=== PATIENT | female | born 1965 | race Two or more races ===

== ENCOUNTER → 2024-02-28 | Outpatient (CLI) | payer MEDICARE, MEDICAID, SELFPAY ==
--- NOTE | 2024-02-28 09:17 | XR_ITS ---
Examination: Bilateral hands, 6 views. Technique: AP, Oblique, Lateral each hand total 6 views Date and time of exam: February 28, 2024 0931 hours INDICATIONS: Bilateral hand pain several years. FINDINGS: Significant osteopenia Benign-appearing sclerosis involving the distal phalanx right fifth digit but clinical correlation advised Mild diffuse narrowing joints of the wrists and hands bilaterally No erosive arthritis No fracture or dislocation involving either hand Impression: Significant osteopenia Mild diffuse nonerosive narrowing joints of the wrists and hands bilaterally Focal sclerosis involving the distal phalanx right fifth digit, likely benign but clinical correlation advised, recommend 3 month follow-up right hand films attention fifth digit
--- NOTE | 2024-02-28 09:17 | XR_ITS ---
Examination: Bilateral wrists 6 views TECHNIQUE: AP oblique lateral each wrist total 6 views Exam date and time: February 28, 2024 0936 hours INDICATIONS: Bilateral wrist pain beginning several years ago FINDINGS: Severe osteopenia Diffuse mild to moderate narrowing radiocarpal intercarpal and carpometacarpal joints No erosive arthritis. No fractures. There is soft tissue vascular calcification. No avascular necrosis IMPRESSION: Severe osteopenia Diffuse [id number] nonerosive narrowing involving radiocarpal, intercarpal and carpometacarpal joints
== END | disposition home or self-care (01) ==
PROVIDERS: PCP Family Medicine; Referring Provider Nurse Practitioner Gerontology; Visit Provider Nurse Practitioner Gerontology
DX: M85.842 Other specified disorders of bone density and structure, left hand (principal); M85.841 Other specified disorders of bone density and structure, right hand; M25.842 Other specified joint disorders, left hand; M25.841 Other specified joint disorders, right hand; M85.88 Other specified disorders of bone density and structure, other site; M25.832 Other specified joint disorders, left wrist; M25.831 Other specified joint disorders, right wrist
CPT/HCPCS: 73110; 73130

== ENCOUNTER → 2024-03-25 | Outpatient (CLI) | payer MEDICARE, SELFPAY ==
[2024-03-25 10:10] LABS: Basophils % (Auto) 0 % (0-2.5); Eosinophils # (Auto) 0.1 Thou/mm3 (0.0-0.5); Eosinophils % (Auto) 1 % (0-10); Hematocrit 39.9 % (36.0-46.0); Hemoglobin 13.7 g/dL (12.0-16.0); Immature Granulocytes % (Auto) 0 % (0-0); Immature Granulocytes Auto 0.01 Thou/mm3 (0.00-0.00); Lymphocytes # (Auto) 2.5 Thou/mm3 (1.0-4.8); Lymphocytes % (Auto) 41 % (10-50); Mean Corpuscular HGB Conc 34.3 g/dl (31.0-37.0); Mean Corpuscular Hemoglobin 29.5 pg (25.0-35.0); Mean Corpuscular Volume 86 fL (80-100); Monocytes # (Auto) 0.3 Thou/mm3 (0.0-0.8); Monocytes % (Auto) 5 % (0-12); Neutrophils # (Auto) 3.2 Thou/mm3 (1.8-7.7); Neutrophils % (Auto) 52 % (37-80); Nucleated Red Blood Cell % 0 /100 WBC (0); Platelet Count 201 Thou/mm3 (140-440); RDW Standard Deviation 41.5 fL (36.4-46.3); Red Blood Count 4.64 Miln/mm3 (4.00-5.20); White Blood Count 6.2 Thou/mm3 (3.6-11.0)
[2024-03-25 10:20] LABS: Glucose Estimated Average 157 mg/dL (80-131); Hemoglobin A1C 7.1 % Hgb (4.8-6.0)
[2024-03-25 10:24] LABS: T4 (Thyroxine) 6.7 mcg/dL (4.5-10.9)
[2024-03-25 10:28] LABS: Alanine Aminotransferase 41 U/L (10-49); Albumin, Serum 4.4 gm/dL (3.4-4.8); Albumin/Globulin Ratio 1.9 (1.2-2.2); Alkaline Phosphatase 61 U/L (46-116); Anion Gap 8 (7-16); Aspartate Amino Transferase 28 U/L (0-34); BUN/Creatinine Ratio 20 Ratio (12-20); Bilirubin,Total 0.4 mg/dL (0.3-1.2); Blood Urea Nitrogen 12 mg/dL (9-23); Calcium 9.3 mg/dL (8.3-10.6); Calcium (Corrected) 9.3 mg/dL (8.5-10.1); Carbon Dioxide 26.8 mMol/L (20.0-31.0); Cardiac Risk Estimate 2.8 RATIO (3.7-5.6); Chloride 105 mMol/L (98-107); Cholesterol 127 mg/dL (132-200); Creatinine (Component) 0.6 mg/dL (0.6-1.3); Globulin 2.3 gm/dL (2.3-3.5); Glucose 114 mg/dL (74-106); HDL Cholesterol 46 mg/dL (40-60); LDL Cholesterol,Calculated 54 mg/dL (0-130); Magnesium 1.6 mg/dL (1.6-2.6); Osmolality,Calculated 280 (275-295); Sodium 140 mMol/L (136-145); Thyroid Stimulating Hormone 0.49 uIU/mL (0.55-4.78); Total Protein 6.7 gm/dL (5.7-8.2); Triglycerides 136 mg/dL (30-150); eGFR > 60 See Note
[2024-03-25 10:40] LABS: Vitamin D 25 Hydroxy Total 37.2 ng/mL (7.3-40.2)
[2024-03-31 06:39] LABS: T3 Uptake* 34 % (22-35)
== END | disposition home or self-care (01) ==
PROVIDERS: PCP Nurse Practitioner Family; Referring Provider Nurse Practitioner Family; Visit Provider Nurse Practitioner Family
DX: E11.40 Type 2 diabetes mellitus with diabetic neuropathy, unspecified (principal); E55.9 Vitamin D deficiency, unspecified; I10 Essential (primary) hypertension; E78.5 Hyperlipidemia, unspecified
CPT/HCPCS: 36415; 80053; 80061; 82306; 83036; 83735; 84436; 84443; 84479; 85025

== ENCOUNTER → 2024-05-27 | Outpatient (CLI) | payer MEDICARE, MEDICAID, SELFPAY ==
--- NOTE | 2024-05-27 | XR_ITS ---
Shoulder bilateral, 6 views Technique: Shoulder AP internal rotation, AP external rotation, Y view each shoulder 6 views Exam date and time :May 27, 2024 1226 hrs. Indications: Bilateral shoulder pain several years. Findings: Moderate osteopenia Bilateral moderate to advanced osteoarthritis glenohumeral joints Old resection distal right clavicle No fractures Impression: Bilateral moderate to advanced osteoarthritis glenohumeral joints
== END | disposition home or self-care (01) ==
PROVIDERS: PCP Nurse Practitioner Family; Referring Provider Nurse Practitioner Family; Visit Provider Nurse Practitioner Family
DX: M19.012 Primary osteoarthritis, left shoulder (principal); M19.011 Primary osteoarthritis, right shoulder
CPT/HCPCS: 73030

== ENCOUNTER 2024-06-25 14:05 | Inpatient (IN) | payer MEDICARE, MEDICAID, SELFPAY ==
[2024-06-25] VITALS (7 sets, daily range): BP systolic 123–137; BP diastolic 65–81; PULSE 72–102; RESP 16–99; TEMP 36.4–37; O2SAT 96–99
--- NOTE | 2024-06-25 14:24 | XR_ITS ---
Examination: PA lateral chest 2 views TECHNIQUE: Upright PA lateral chest 2 views Exam date and time: June 25, 2024 1654 hours Comparison July 14, 2020 INDICATIONS: Chest pain today FINDINGS: Normal heart size Lungs are clear. Old right-sided rib fractures IMPRESSION: No active disease
--- NOTE | 2024-06-25 14:25 | PD.EDRME ---
Rapid Medical Screening Exam E Arrival date/time: 06/25/24 14:05 59-year-old female presents to the emergency department for complaint of abdominal pain blood in the stool generalized fatigue Chief Complaint: Abdominal Pain Vital signs: Vital Signs Temperature 98.5 F 06/25/24 14:15 Pulse Rate 102 H 06/25/24 14:15 Respiratory Rate 20 06/25/24 14:15 Blood Pressure 129/75 06/25/24 14:15 Pulse Oximetry (%) 98 06/25/24 14:15 Oxygen Delivery Method Room Air 06/25/24 14:15
[2024-06-25 15:14] LABS: Collection Type, Urine Clean Catch
[2024-06-25 15:18] LABS: Basophils % (Auto) 0 % (0-2.5); Eosinophils # (Auto) 0.1 Thou/mm3 (0.0-0.5); Eosinophils % (Auto) 1 % (0-10); Hematocrit 40.6 % (36.0-46.0); Hemoglobin 14.7 g/dL (12.0-16.0); Immature Granulocytes % (Auto) 0 % (0-0); Immature Granulocytes Auto 0.02 Thou/mm3 (0.00-0.00); Lymphocytes % (Auto) 23 % (10-50); Mean Corpuscular HGB Conc 36.2 g/dl (31.0-37.0); Mean Corpuscular Hemoglobin 30.6 pg (25.0-35.0); Mean Corpuscular Volume 84 fL (80-100); Monocytes # (Auto) 0.5 Thou/mm3 (0.0-0.8); Monocytes % (Auto) 6 % (0-12); Neutrophils # (Auto) 6.4 Thou/mm3 (1.8-7.7); Neutrophils % (Auto) 71 % (37-80); Nucleated Red Blood Cell % 0 /100 WBC (0); Platelet Count 194 Thou/mm3 (140-440); Red Blood Count 4.81 Miln/mm3 (4.00-5.20)
[2024-06-25 15:26] LABS: Amphetamine/Methamp Scrn,U Negative (Negative); Barbiturate Screen,Urine Negative (Negative); Benzodiazepines Screen,Urine Negative (Negative); Benzoylecgonine Screen, Ur Negative (Negative); Fentanyl Screen,Urine Negative (Negative); Opiate Screen,Urine Negative (Negative); THC Screen,Urine Negative (Negative)
[2024-06-25 15:28] LABS: Bilirubin,Urine Negative (Negative); Blood,Urine Negative (Negative); Clarity,Urine Clear (Clear/Hazy); Color,Urine Lt-Yellow (Lt Yel-Yel); Glucose, Urine 4+ (Negative); Ketones,Urine Negative (Negative); Leukocyte Esterase,Urine Negative (Negative); Nitrite,Urine Negative (Negative); Protein,Urine Negative (Neg - Trace); RBC,Urine 4 /hpf (0-3); Specific Gravity,Urine 1.038 (1.001-1.035); Squamous Epithelial Cell,Urine 3 /hpf (0-5); Urobilinogen,Urine Negative mg/dL (0.0-1.0); WBC,Urine 1 /hpf (0-5)
[2024-06-25 15:32] LABS: INR 1.1 (0.9-1.3); Partial Thromboplastin Time 25.1 Seconds (22.0-36.0); Prothrombin Time 11.5 Seconds (9.0-12.2)
[2024-06-25 15:33] LABS: B-Type Natriuretic Peptide 25 pg/mL (0-100)
[2024-06-25 15:34] LABS: Alanine Aminotransferase 37 U/L (10-49); Albumin/Globulin Ratio 1.9 (1.2-2.2); Alkaline Phosphatase 79 U/L (46-116); Anion Gap 9 (7-16); Aspartate Amino Transferase 35 U/L (0-34); BUN/Creatinine Ratio 13 Ratio (12-20); Bilirubin,Total 0.5 mg/dL (0.3-1.2); Blood Urea Nitrogen 13 mg/dL (9-23); Calcium 9.7 mg/dL (8.3-10.6); Calcium (Corrected) 9.7 mg/dL (8.5-10.1); Carbon Dioxide 24.1 mMol/L (20.0-31.0); Chloride 106 mMol/L (98-107); Estimated Creatinine Clearance 62.4 mL/min (>60); Globulin 2.7 gm/dL (2.3-3.5); Glucose 194 mg/dL (74-106); Lipase 51 U/L (12-53); Osmolality,Calculated 282 (275-295); Potassium 4.7 mMol/L (3.4-5.1); Sodium 139 mMol/L (136-145); Total Protein 7.7 gm/dL (5.7-8.2); Troponin I < 0.002 ng/mL (0.0-0.045); eGFR > 60 See Note
--- NOTE | 2024-06-25 17:21 | XR_ITS ---
Examination: CT abdomen with intravenous contrast CT pelvis with intravenous contrast 2-D coronal reconstructions 2-D sagittal reconstructions Date and time of exam:June 25, 2024 1815 hours Comparison May 22, 2021 INDICATIONS: Bloody diarrhea flank pain today, history diverticulitis. CTDI: vol (mGy) 11 DLP: (mGycm) 630 Technique: Multiple axial sections of the abdomen and pelvis have been obtained. 64 slice high-resolution scanner used. 3 mm axial sections have been obtained, post intravenous injection 60 cc [id number] 2-D sagittal, coronal reconstructions obtained. Low dose protocols were performed. One or more of the following dose reduction techniques were used; automated exposure control, adjustment of the mA and/or KV according to patient size, use of iterative reconstruction technique. Findings: Gastric sutures with retrocardiac gastric hernia Fatty infiltration throughout the liver liver is irregular in contour Absent gallbladder Mild splenomegaly No pancreatic or adrenal mass 4 mm lower pole nonobstructing left renal calculus Abdominal aortic calcification no aneurysmal dilatation 15 mm fat-containing umbilical hernia No pericecal inflammatory change The entire colon shows wall thickening and hyperemia, nonspecific colitis pattern This includes the rectum with rectal wall thickening No pelvic mass Moderate osteopenia moderate disc narrowing L4-L5 Impression: Suspect primary hepatocellular disease Mild splenomegaly. 4 mm lower pole obstructing left renal calculus The entire colon shows wall thickening and hyperemia, colitis pattern, differential include hepatic arthropathy, ulcerative colitis, Crohn's disease Also proctitis pattern
--- NOTE | 2024-06-25 17:29 | PD.EDABDPN ---
ED Abdominal Pain RME/HPI General Chief Complaint: Abdominal Pain Stated complaint: ABD PAIN, BLOODY DIARRHEA;PT HAS DIVERTICULA.VOMIT Time seen by provider: 06/25/24 16:48 Arrival date/time: 06/25/24 14:05 59-year-old female presents to the ED with a complaint of left lower abdominal cramping, pain as well as bloody diarrhea for the past 3 days. She has a history of diverticulosis as well as a previous history of diverticulitis. She feels that her symptoms she is currently experiencing are just like the previous history of diverticulitis. She has felt feverish and chilled but no documented temperature at home. She sees Dr. Johnson for gastroenterology. She has had some nausea but no vomiting. Source: patient Mode of arrival: ambulatory Limitations: no limitations RME / HPI RME / HPI narrative: 06/25/24 14:05 59-year-old female presents to the emergency department for complaint of abdominal pain blood in the stool generalized fatigue MD complaint: abdominal pain Onset (ago): day(s) (3) Consistency: constant Location: LLQ and suprapubic Severity: severe Quality: cramping Associated symptoms: nausea, diarrhea, fever, chills and melena Related Data Home Medications ?Medication ?Instructions ?Recorded ?Confirmed pantoprazole 40 mg tablet,delayed 40 mg PO QDAY 11/24/17 04/27/23 release (Protonix) acetaminophen 500 mg oral powder 500 mg PO Q6H PRN Pain (Scale 04/27/23 04/27/23 packet Score 4-6) atorvastatin 20 mg tablet 20 mg PO QDAY 04/27/23 04/27/23 cyclobenzaprine 5 mg tablet 5 mg PO TID PRN muscle spams 04/27/23 04/27/23 Held on 04/27/23. Instructions: Resume on 04/28/23. dicyclomine 20 mg tablet 20 mg PO QID PRN Abdominal Pain 04/27/23 04/27/23 duloxetine 20 mg capsule,delayed 20 mg PO QDAY 04/27/23 04/27/23 release Previous Rx's ?Medication ?Instructions ?Recorded diphenhydramine HCl 25 mg capsule 25 mg PO Q8H PRN allergic symptoms 04/06/23 (Benadryl) #30 caps Held on 04/27/23. Instructions: Resume on 04/28/23. Allergies Allergy/AdvReac Type Severity Reaction Status Date / Time Sulfa (Sulfonamide Allergy Swelling Verified 06/25/24 14:10 Antibiotics) of Lip/Tongue/Throat codeine AdvReac Severe SICK TO Verified 06/25/24 14:10 STOMACH Review of Systems Review of Systems Systems Reviewed: All systems reviewed, normal except as documented Past Medical History Past Medical History NEUROLOGIC: Negative Neurological Disorders or Seizures CARDIAC: Positive Cardiac Disorders, Hypercholesterolemia and Hypertension; Negative Congestive Heart Failure, Edema or Cellulitis RESPIRATORY: Negative Chronic Obstructive Pulmonary Disease (COPD), Asthma, Tuberculosis or Sleep Apnea GASTROINTESTINAL: Positive Gastrointestinal Disorders, Pancreatitis, Gall Bladder Disease, Diverticulitis, Diverticulosis, Gastroesophageal Reflux Disease and Obesity; Negative Hepatitis GENITOURINARY: Negative Genitourinary Disorders or Renal Disease REPRODUCTIVE: Positive Gonorrhea and Previous Pregnancies; Negative Breast Cancer or Endometriosis MUSCULOSKELETAL: Positive Musculoskeletal Disorders, Arthritis and Fractures ENDOCRINE: Positive Endocrine Disorders and Diabetes Mellitus Type 2; Negative Diabetes Mellitus Type 1 or Hypothyroidism HEMATOLOGIC: Positive Anemia; Negative Blood Disorders, Sickle Cell Disease or Clotting Problems PSYCHO/SOCIAL: Positive Depression and Anxiety OTHER HISTORY: Positive Hospitalization, Falls and Chicken Pox; Negative Autoimmune Disease, Shingles, Blood Transfusions, Blood Transfusion Reaction, Anesthesia Reactions, Chemotherapy, Radiation Therapy, MRSA, Measles, Mumps, Cancer or Breast Cancer Family History FAMILY HISTORY: Positive Family Psychiatric Problems, Family Cardiac Disorders, Family Gastrointestinal Problems, Family Cancer, Family Surgery and Family Anesthesia Reaction; Negative Family Respiratory Disorders Surgical History SURGICAL: Positive Angiogram, Abdominal Surgery, Open Reduction Internal Fixation, Arthroscopy, Hysterectomy, Tubal Ligation and Section; Negative Cardiac Surgery or Pacemaker Social History SMOKING STATUS: Never smoker SECOND HAND EXPOSURE: Yes SUBSTANCE USE: former substance user (Quit in 2020) ED Exam Narrative Physical exam: Pleasant 59-year-old female, mild acute distress secondary to pain. Lungs are clear, cardio: Regular rate and rhythm without murmurs. Abdomen is soft with tenderness in the left lower quadrant as well as suprapubic areas. Moves all extremities well. Alert and oriented. General Limitations: Present no limitations General appearance: Present alert and in distress Head Head exam: Present atraumatic, normocephalic and normal inspection Eye Eye exam: Present normal appearance; Absent scleral icterus or conjunctival injection ENT ENT exam: Present normal exam Neck Neck exam: Present normal inspection Chest Chest inspection: Present normal inspection Respiratory Respiratory exam: Present normal lung sounds bilaterally; Absent respiratory distress Cardiovascular Cardiovascular exam: Present regular rate, normal rhythm, normal heart sounds, +S1 and +S2; Absent systolic murmur Abdominal Exam Abdominal exam: Present soft and tenderness; Absent distention, guarding, rebound or rigidity Abdominal tenderness: Present LLQ and suprapubic Extremities Exam Extremities exam: Present normal inspection and full ROM Back Exam Back exam: Present normal inspection and full ROM; Absent CVA tenderness (R) or CVA tenderness (L) Neurological Exam Neurological exam: Present alert and oriented X3 Psychiatric Psychiatric exam: Present normal affect and normal mood Skin Skin exam: Present warm, dry, intact and normal color Course Course Course Narrative: 59-year-old female presents to the ED with a complaint of left lower abdominal cramping, pain as well as bloody diarrhea for the past 3 days. She has a history of diverticulosis as well as a previous history of diverticulitis. She feels that her symptoms she is currently experiencing are just like the previous history of diverticulitis. She has felt feverish and chilled but no documented temperature at home. She sees Dr. Johnson for gastroenterology. She has had some nausea but no vomiting. Pleasant 59-year-old female, mild acute distress secondary to pain. Lungs are clear, cardio: Regular rate and rhythm without murmurs. Abdomen is soft with tenderness in the left lower quadrant as well as suprapubic areas. Moves all extremities well. Alert and oriented. Labs are essentially normal with a normal white count, normal renal function, elevated glucose at 194, BUN/creatinine ratio 13, AST is minimally elevated 35, urinalysis reveals a specific gravity of 1.038 and 4+ glucose with 4 RBCs, otherwise negative. Quality Measures none Orders Category Date Time Status CT Screening NOW Care 06/25/24 17:[address] Screening X1 Care 06/25/24 17:21 Active EKG (ED ONLY) *Do not use* NOW Care 06/25/24 14:24 Completed Insert IV NOW Care 06/25/24 17:[address] abdomen pelvis w con Stat Exams 06/25/24 17:21 Completed EKG (ED Only) Stat Exams 06/25/24 14:24 Ordered XR chest 2V Stat Exams 06/25/24 14:24 Completed B-Type Natriuretic Peptide Stat Lab 06/25/24 15:04 Completed CBC Stat Lab 06/25/24 15:04 Completed Comprehensive Metabolic Panel Stat Lab 06/25/24 15:04 Completed Drug Screen,Urine Stat Lab 06/25/24 14:50 Completed Lipase Stat Lab 06/25/24 15:04 Completed Magnesium Stat Lab 06/25/24 15:04 Completed Partial Thromboplastin Time Stat Lab 06/25/24 15:04 Completed Prothrombin Time with INR Stat Lab 06/25/24 15:04 Completed Troponin I Stat Lab 06/25/24 15:04 Completed Urinalysis Stat Lab 06/25/24 14:50 Completed Ketorolac Inj [Toradol Inj] Med 06/25/24 18:39 Discontinued 30 mg IM X1 ONE Vital Signs Vital signs: Vital Signs Temperature 98.5 F 06/25/24 14:15 Pulse Rate 102 H 06/25/24 14:15 Respiratory Rate 20 06/25/24 14:15 Blood Pressure 129/75 06/25/24 14:15 Pulse Oximetry (%) 98 06/25/24 14:15 Oxygen Delivery Method Room Air 06/25/24 14:15 Abdominal Pain MDM MDM Narrative MDM Narrative:: 59-year-old female presents to the ED with a complaint of left lower abdominal cramping, pain as well as bloody diarrhea for the past 3 days. She has a history of diverticulosis as well as a previous history of diverticulitis. She feels that her symptoms she is currently experiencing are just like the previous history of diverticulitis. She has felt feverish and chilled but no documented temperature at home. She sees Dr. Johnson for gastroenterology. She has had some nausea but no vomiting. Pleasant 59-year-old female, mild acute distress secondary to pain. Lungs are clear, cardio: Regular rate and rhythm without murmurs. Abdomen is soft with tenderness in the left lower quadrant as well as suprapubic areas. Moves all extremities well. Alert and oriented. Labs are essentially normal with a normal white count, normal renal function, elevated glucose at 194, BUN/creatinine ratio 13, AST is minimally elevated 35, urinalysis reveals a specific gravity of 1.038 and 4+ glucose with 4 RBCs, otherwise negative. CT Abd/Pel reveals: Impression: Suspect primary hepatocellular disease Mild splenomegaly. 4 mm lower pole non-obstructing left renal calculus The entire colon shows wall thickening and hyperemia, colitis pattern, differential include hepatic arthropathy, ulcerative colitis, Crohn's disease Also proctitis pattern Due to the CT confirmed colitis with bloody diarrhea, patient has a lower GI bleed and needs to be admitted to the hospital. Patient data External records reviewed:: None Clinical information provided by:: patient Social determinants that could affect healthcare access:: none How is presenting disease/condition affected by chronic disease/condition?: uneffected by Evaluation data The following diagnostics were reviewed and interpreted by me:: radiology exam(s) Lab and/or radiology exams considered but not ordered:: N/A Interpretation Summary: Ordering Physician: Martina Valdovinos PA-C Date of Service: 06/25/24 Procedure(s): CT abdomen pelvis w con Accession Number(s): [id number] cc: Marcial Walters MD; NO PRIMARY/FAMILY,PHYSICIAN; Martina Valdovinos PA-C~ ADDENDUM ADDENDUM #1 Addendum: Body of the report and impression indicate 2 mm lower pole nonobstructing left renal calculus ORIGINAL REPORT Examination: CT abdomen with intravenous contrast CT pelvis with intravenous contrast 2-D coronal reconstructions 2-D sagittal reconstructions Date and time of exam:June 25, 2024 1815 hours Comparison May 22, 2021 INDICATIONS: Bloody diarrhea flank pain today, history diverticulitis. CTDI: vol (mGy) 11 DLP: (mGycm) 630 Technique: Multiple axial sections of the abdomen and pelvis have been obtained. 64 slice high-resolution scanner used. 3 mm axial sections have been obtained, post intravenous injection 60 cc Isovue-370 2-D sagittal, coronal reconstructions obtained. Low dose protocols were performed. One or more of the following dose reduction techniques were used; automated exposure control, adjustment of the mA and/or KV according to patient size, use of iterative reconstruction technique. Findings: Gastric sutures with retrocardiac gastric hernia Fatty infiltration throughout the liver liver is irregular in contour Absent gallbladder Mild splenomegaly No pancreatic or adrenal mass 4 mm lower pole nonobstructing left renal calculus Abdominal aortic calcification no aneurysmal dilatation 15 mm fat-containing umbilical hernia No pericecal inflammatory change The entire colon shows wall thickening and hyperemia, nonspecific colitis pattern This includes the rectum with rectal wall thickening No pelvic mass Moderate osteopenia moderate disc narrowing L4-L5 Impression: Suspect primary hepatocellular disease Mild splenomegaly. 4 mm lower pole NON-obstructing left renal calculus The entire colon shows wall thickening and hyperemia, colitis pattern, differential include hepatic arthropathy, ulcerative colitis, Crohn's disease Also proctitis pattern Addendum Dictated By: Marcial Walters MD Addendum Signed By: <Electronically signed by Marcial Walters MD in [place]> 06/25/242231 Addendum Cosigned By: DD/ /12/2230 TD/TT: 06/25/2409/12/2230 Examination: CT abdomen with intravenous contrast CT pelvis with intravenous contrast 2-D coronal reconstructions 2-D sagittal reconstructions Date and time of exam:June 25, 2024 1815 hours Comparison May 22, 2021 INDICATIONS: Bloody diarrhea flank pain today, history diverticulitis. CTDI: vol (mGy) 11 DLP: (mGycm) 630 Technique: Multiple axial sections of the abdomen and pelvis have been obtained. 64 slice high-resolution scanner used. 3 mm axial sections have been obtained, post intravenous injection 60 cc Isovue-370 2-D sagittal, coronal reconstructions obtained. Low dose protocols were performed. One or more of the following dose reduction techniques were used; automated exposure control, adjustment of the mA and/or KV according to patient size, use of iterative reconstruction technique. Findings: Gastric sutures with retrocardiac gastric hernia Fatty infiltration throughout the liver liver is irregular in contour Absent gallbladder Mild splenomegaly No pancreatic or adrenal mass 4 mm lower pole nonobstructing left renal calculus Abdominal aortic calcification no aneurysmal dilatation 15 mm fat-containing umbilical hernia No pericecal inflammatory change The entire colon shows wall thickening and hyperemia, nonspecific colitis pattern This includes the rectum with rectal wall thickening No pelvic mass Moderate osteopenia moderate disc narrowing L4-L5 Impression: Suspect primary hepatocellular disease Mild splenomegaly. 4 mm lower pole non-obstructing left renal calculus The entire colon shows wall thickening and hyperemia, colitis pattern, differential include hepatic arthropathy, ulcerative colitis, Crohn's disease Also proctitis pattern Medications / Prescriptions Medications or Prescriptions considered but not ordered:: Mesalamine Medication administrations:: Medication Administration History Discontinued Medications Ketorolac Tromethamine (Ketorolac Inj 60 Mg/2 Ml Vial) 30 mg IM X1 ONE Stop: 06/25/24 18:40 Last Admin: 06/25/24 18:55 Dose: 30 mg Documented By: Consultations Consultation(s) initiated? (list below): Yes Consultation #1 (Physician, Specialty, Details): Dr. James, resident service Time: 22:46 Diagnosis Differential diagnosis abdominal pain: abdominal pain, acute appendicitis, calculus of kidney, diverticulitis, small bowel obstruction and other (Diverticulosis, colitis) Most likely diagnosis given after review of the tests above:: Diffuse colitis and 4 mm nonobstructive renal calculus Admission Indicated Admission indicated?: indicated Explain why admission is indicated or not indicated:: Lower GI bleed Admission Request Was there a request for admission?: Yes Admission Attestation Admission request attestation: Discussed case with Dr. James from [facility] service regarding admission. Discussed patients ED course, exam findings, labs, and radiology results. The Resident Hospitalist agrees to accept the patient for admission. Disposition Plan Disposition Plan: Admit Discharge Plan Prescriptions/Referrals Prescriptions/Med Rec: No Action pantoprazole [Protonix] 40 mg Tablet,Delayed Release (Dr/Ec) 40 mg PO QDAY diphenhydramine HCl [Benadryl] 25 mg capsule 25 mg PO Q8H PRN (Reason: allergic symptoms) Qty: 30 0RF atorvastatin 20 mg tablet 20 mg PO QDAY dicyclomine 20 mg tablet 20 mg PO QID PRN (Reason: Abdominal Pain) cyclobenzaprine 5 mg Tablet 5 mg PO TID PRN (Reason: muscle spams) duloxetine 20 mg capsule,delayed release(DR/EC) 20 mg PO QDAY acetaminophen 500 mg Powder In Packet 500 mg PO Q6H PRN (Reason: Pain (Scale Score 4-6)) Referrals: No Primary/Family,Physician [Primary Care Provider] - In 1 week Patient/Caregiver Discharge Instructions Print Language: Lao
[2024-06-25] MEDS: KETOROLAC INJ 60 MG/2 ML VIAL 30 MG IM (18:55)
--- NOTE | 2024-06-25 23:38 | PD.RESHP ---
Documentation for date of: 06/25/24 HPI History of Present Illness Chief complaint: Blood in stool History of present illness: Fransisca Stroud is 59 yr F with PMH of type 2 diabetes, hypertension, sleeve gastrectomy presenting to the ED due to abdominal pain and multiple episodes of melena. Patient stated that earlier today she was standing in line for about 30 minutes and started experiencing diaphoresis, abdominal pain, lightheadedness. Denies loss of consciousness or falling. Patient then went to the bathroom and had multiple episodes of melena. She felt like their was no stool but mostly blood. Patient has abdominal pain 7/10, no nausea or vomiting, normal appetite, no recent travel, no change in diet. She follows GI Dr. Johnson outpatient who had done EGD in April of last year with no findings of active bleeding. Biopsies were negative for H. pylori or dysplasia. In ED, vital stable, CBC, CMP unremarkable. A1c 7.1, glucose on admission 194. CT abdomen pelvis showed colitis pattern. Patient will be admitted for IV antibiotics in setting of colitis. PMH: as noted above PSH: Sleeve gastrectomy 2022, cholecystectomy, appendectomy, hysterectomy FamHx: Father from thyroid cancer, mother from liver cancer Social: Lives in [place] with , unemployed, denies smoking, no drinking, no drug use Meds: Atorvastatin 20 mg, cyclobenzaprine 5 mg 3 times daily, duloxetine 20 mg Allergies: Codeine and sulfa Review of Systems Review of Systems Systems Reviewed: All systems reviewed, normal except as documented Exam Vital Signs Temp Pulse Resp BP Pulse Ox O2 Del Method 98.6 F 76 16 137/70 H 99 Room Air 06/25/24 22:00 06/25/24 22:00 06/25/24 22:00 06/25/24 22:00 06/25/24 22:06/25/24 22:00 Narrative Exam General: Middle-age female, minor distress from pain, obese, cooperative. HEENT: NCAT, No JVD noted. Mucosa moist. Pupils are equal and reactive to light bilaterally. Cardiovascular: Normal S1 and S2. Regular rate and rhythm. Respiratory: Lungs are clear to auscultation bilaterally. No wheezing or crackles heard. Abdomen: Soft, tender, not distended, normal bowel sounds. Skin: Warm to touch, dry, no rashes noted. Musculoskeletal: No gross injuries. Able to move all 4 extremities. No pitting edema, scar from knee surgery. Neuro: Alert and oriented x3. No focal neuro deficits. Psych: Normal affect and mood. Results: Labs 06/25/24 15:04 06/25/24 15:04 Labs: Short CBC 06/25/24 Range/Units 15:04 WBC 9.0 (3.6-11.0) Thou/mm3 Hgb 14.7 (12.0-16.0) g/dL Hct 40.6 (36.0-46.0) % Plt Count 194 (140-440) Thou/mm3 BMP 06/25/24 15:04 Sodium 139 Potassium 4.7 Chloride 106 Carbon Dioxide 24.1 BUN 13 Creatinine 1.0 Glucose 194 H Calcium 9.7 Cardiac Enzymes 06/25/24 Range/Units 15:04 Troponin I < 0.002 (0.0-0.045) ng/mL Liver Function 06/25/24 Range/Units 15:04 Total Bilirubin 0.5 (0.3-1.2) mg/dL AST 35 H (0-34) U/L ALT 37 (10-49) U/L Alkaline Phosphatase 79 (46-116) U/L Albumin 5.0 H (3.4-4.8) gm/dL Urine 06/25/24 Range/Units 14:50 Urine Color Lt-Yellow (Lt Yel-Yel) Urine Clarity Clear (Clear/Hazy) Urine pH 6.0 (5.0-7.0) Ur Specific [place] 1.038 H (1.001-1.035) Urine Protein Negative (Neg - Trace) Urine Glucose (UA) 4+ A (Negative) Quality Measures Quality Measures none Medications Home Medications and Allergies Home Medications ?Medication ?Instructions ?Recorded ?Confirmed ?Type pantoprazole 40 mg tablet,delayed 40 mg PO QDAY 11/24/17 04/27/23 History release (Protonix) acetaminophen 500 mg oral powder 500 mg PO Q6H PRN Pain (Scale 04/27/23 04/27/23 History packet Score 4-6) atorvastatin 20 mg tablet 20 mg PO QDAY 04/27/23 04/27/23 History cyclobenzaprine 5 mg tablet 5 mg PO TID PRN muscle spams 04/27/23 04/27/23 History Held on 04/27/23. Instructions: Resume on 04/28/23. dicyclomine 20 mg tablet 20 mg PO QID PRN Abdominal Pain 04/27/23 04/27/23 History duloxetine 20 mg capsule,delayed 20 mg PO QDAY 04/27/23 04/27/23 History release Allergies Allergy/AdvReac Type Severity Reaction Status Date / Time Sulfa (Sulfonamide Allergy Swelling Verified 06/25/24 14:10 Antibiotics) of Lip/Tongue/Throat codeine AdvReac Severe SICK TO Verified 06/25/24 14:10 STOMACH Visit Medications Acetaminophen (Acetaminophen 325 Mg Tablet) 650 mg PO Q6H PRN PRN Reason: Fever >100.3 or pain Stop: 07/25/24 23:12 Ciprofloxacin/Dextrose (Cipro Ivpb) 400 mg in 200 mls @ 200 mls/hr IV Q12HR [facility]APARRITA Stop: 07/02/24 23:19 Metronidazole (Flagyl 500 Mg Iv) 500 mg in 100 mls @ 200 mls/hr IV Q8HR [facility]ITA Stop: 07/02/24 23:19 Ciprofloxacin/Dextrose (Cipro Ivpb) 400 mg in 200 mls @ 200 mls/hr IV X1 ONE Stop: 06/26/24 00:29 Metronidazole (Flagyl 500 Mg Iv) 500 mg in 100 mls @ 200 mls/hr IV X1 ONE Stop: 06/25/24 23:59 Morphine Sulfate (Morphine Sulf Inj 10 Mg/Ml Vial) 2 mg IVP Q4HR PRN PRN Reason: pain 4-10 Stop: 06/30/24 23:19 Ondansetron HCl (Ondansetron Inj 2 Mg/Ml Inj 2 Ml) 4 mg IV Q6H PRN; Protocol PRN Reason: NAUSEA OR VOMITING Stop: 07/25/24 23:12 Pantoprazole Sodium (Pantoprazole Inj 40 Mg Vial) 40 mg IVP Q12HR CHAPARRITA Stop: 07/26/24 08:59 Discontinued Medications Ketorolac Tromethamine (Ketorolac Inj 60 Mg/2 Ml Vial) 30 mg IM X1 ONE Stop: 06/25/24 18:40 Last Admin: 06/25/24 18:55 Dose: 30 mg Assessment & Plan Plan Fransisca Stroud is 59 yr F with PMH of type 2 diabetes, hypertension, sleeve gastrectomy presenting to the ED due to abdominal pain and multiple episodes of melena. Patient will be admitted for IV antibiotics in setting of colitis. #Colitis Multiple episdoes of melena, no diarreha. Has abdominal pain, no vomiting. Patient receive Ketorolac 30mg, flagyl [id number], Zofran in ED. CT abdomen pelvis showed colitis pattern. - Ciprofloxacin 400mg BID (06/25- - Metronidazole 500 mg TID (06/25- - Liquid diet - Zofran #History of type 2 diabetes On admission initial glucose 194. Last A1c 7.1 on 04/15. Patient takes Jardiance 25mg daily for diabetes at home. - Held home medications - Bedside blood glucose checks ACHS - Insulin lispro sliding scale - Carb consistent low diet - Consulted gas meter repair supervisor - A1c pending #Hx HTN #Hx HLD - Med rec pending Health maintenance: Dispo: med surg for obs, IV abx FEN: liquid DVT prophylaxis: SCDs CODE STATUS: Full code The patient's management plan was discussed with my attending physician Dr. Wood. Xenia Amaya, PGY-1 Attending Provider Attestation/Addendum Pt was evaluated and plan formulated together with the housestaff team. I have reviewed the residents note above and agree with most of its content. Please refer to the residents note for additional details.
[2024-06-25] MEDS: metroNIDAZOLE/NS 500 MG IVPB 500 MG/100 ML BAG 200 MG IV (23:51)
[2024-06-25] MEDS: ONDANSETRON INJ 2 MG/ML INJ 2 ML 4 MG IV (23:53)
[2024-06-25] MEDS: MORPHINE SULF INJ 10 MG/ML VIAL 2 MG IVP (23:53)
[2024-06-26] VITALS (9 sets, daily range): BP systolic 117–143; BP diastolic 58–82; PULSE 65–77; RESP 16–100; TEMP 36.1–37; O2SAT 94–99; BMI 29.7
[2024-06-26] MEDS: CIPROFLOXACIN/D5w 400 MG IVPB 400 MG/200 ML BAG 200 MG IV ×3 (00:28→22:08)
--- NOTE | 2024-06-26 04:44 | PC.NURSE ---
CALLED PT WANTS PAIN MEDS BUT DOES NOT WANT THE ORDERED MORPHINE WILL put in another order
[2024-06-26] MEDS: MORPHINE SULF INJ 10 MG/ML VIAL 2 MG IVP ×2 (05:41→11:09)
[2024-06-26] MEDS: metroNIDAZOLE/NS 500 MG IVPB 500 MG/100 ML BAG 200 MG IV ×3 (05:42→21:23)
[2024-06-26 05:58] LABS: Basophils % (Auto) 0 % (0-2.5); Eosinophils # (Auto) 0.1 Thou/mm3 (0.0-0.5); Eosinophils % (Auto) 2 % (0-10); Hematocrit 38.5 % (36.0-46.0); Hemoglobin 13.2 g/dL (12.0-16.0); Immature Granulocytes % (Auto) 0 % (0-0); Immature Granulocytes Auto 0.01 Thou/mm3 (0.00-0.00); Lymphocytes # (Auto) 2.6 Thou/mm3 (1.0-4.8); Lymphocytes % (Auto) 39 % (10-50); Mean Corpuscular HGB Conc 34.3 g/dl (31.0-37.0); Mean Corpuscular Hemoglobin 30.2 pg (25.0-35.0); Mean Corpuscular Volume 88 fL (80-100); Monocytes # (Auto) 0.5 Thou/mm3 (0.0-0.8); Monocytes % (Auto) 7 % (0-12); Neutrophils # (Auto) 3.4 Thou/mm3 (1.8-7.7); Neutrophils % (Auto) 52 % (37-80); Nucleated Red Blood Cell % 0 /100 WBC (0); Platelet Count 137 Thou/mm3 (140-440); RDW Standard Deviation 42.4 fL (36.4-46.3); Red Blood Count 4.37 Miln/mm3 (4.00-5.20); White Blood Count 6.6 Thou/mm3 (3.6-11.0)
[2024-06-26 06:14] LABS: Glucose Estimated Average 160 mg/dL (80-131); Hemoglobin A1C 7.2 % Hgb (4.8-6.0)
[2024-06-26 06:18] LABS: Alanine Aminotransferase 30 U/L (10-49); Albumin, Serum 4.3 gm/dL (3.4-4.8); Albumin/Globulin Ratio 1.9 (1.2-2.2); Alkaline Phosphatase 69 U/L (46-116); Anion Gap 8 (7-16); Aspartate Amino Transferase 27 U/L (0-34); BUN/Creatinine Ratio 12 Ratio (12-20); Bilirubin,Total 0.7 mg/dL (0.3-1.2); Blood Urea Nitrogen 11 mg/dL (9-23); Carbon Dioxide 24.5 mMol/L (20.0-31.0); Chloride 107 mMol/L (98-107); Creatinine (Component) 0.9 mg/dL (0.6-1.3); Estimated Creatinine Clearance 69.3 mL/min (>60); Globulin 2.3 gm/dL (2.3-3.5); Glucose 129 mg/dL (74-106); Osmolality,Calculated 278 (275-295); Phosphorous 4.5 mg/dL (2.4-5.1); Potassium 4.4 mMol/L (3.4-5.1); Sodium 139 mMol/L (136-145); Thyroid Stimulating Hormone 0.83 uIU/mL (0.55-4.78); Total Protein 6.6 gm/dL (5.7-8.2); eGFR > 60 See Note
[2024-06-26] MEDS: PANTOPRAZOLE INJ 40 MG VIAL IVP ×2 (08:18→21:16)
--- NOTE | 2024-06-26 10:02 | PC.NURSE ---
SPPOKE TO DR. SANTANA; PT REQUESTING MEDICATION FOR PAIN OTHER THAN MORPHINE AT THIS TIME; PER PT, IT MAKES ME ITCH EVERYWHERE. PER DR. SANTANA, WILL PUT IN A NEW ORDER SOON.
[2024-06-26] MEDS: ONDANSETRON INJ 2 MG/ML INJ 2 ML 4 MG IV (11:08)
--- NOTE | 2024-06-26 16:23 | ESPR_ITS ---
<Statement entered by Amol Richards MD - 06/26/24 16:38> Patient presented with abdominal pain, rectal urgency, and rectal bleeding. Patient was admitted for treatment for infectious colitis, however we will leave that the patient might have inflammatory bowel disease. Of note the patient has had EGD was done by Dr. Johnson for workup for management started for anemia workup. It came back negative. Will consult to GI specialist Dr. Johnson I will continue patient on antibiotics, will follow-up on the patient hemoglobin level as the patient reported that she also experienced some dizziness and blurry vision during the episode. - Patient's plan and care discussed with my attending, Dr. Joy Richards MD Internal Medicine PGY-2 Documentation for date of: 06/26/24 Subjective Subjective Interval history: Patient was seen and examined at bedside this AM. No acute exents overnight. Patient tolerating diet, adequate urine output and mentation is at baseline. Patient endorses improvement of diarrhea. GI, , Consulted. Appreciate recommendations. Repeat H&H at 6 PM today Exam Vital Signs Temp Pulse Resp BP Pulse Ox O2 Del Method 97.3 F 65 18 117/58 L 99 Room Air 06/26/24 15:59 06/26/24 15:59 06/26/24 15:59 06/26/24 15:59 06/26/24 15:59 06/26/24 15:59 Narrative Exam Constitutional Alert, oriented x 3 and comfortable HEENT Vision grossly intact. Patent nares. Trachea midline Respiratory Chest normal on inspection and clear auscultation bilaterally Cardiovascular S1 and S2 audible, RRR. No murmurs carotid bruit. No gross JVD. Abdominal Soft and non tender to palpation in all quadrants. BS + Genitourinary No bladder tenderness, no flank pain. Normal to palpation Musculoskeletal Extremities tone within normal limits. No LE edema. Neurological CN II - XII grossly intact. Extremity motor and sensation grossly intact. Skin Warm, dry and intact. No apparent lesions. Psychiatric Patient has good affect, is cooperative Objective Labs 06/26/24 04:40 06/26/24 04:40 Labs: Laboratory Results - last 24 hr 06/26/24 04:40 WBC 6.6 RBC 4.37 Hgb 13.2 Hct 38.5 MCV 88 MCH 30.2 MCHC 34.3 RDW Std Deviation 42.4 Plt Count 137 L D Neut % (Auto) 52 Lymph % (Auto) 39 [place] % (Auto) 7 Eos % (Auto) 2 Baso % (Auto) 0 Neut # (Auto) 3.4 Lymph # (Auto) 2.6 [place] # (Auto) 0.5 Eos # (Auto) 0.1 Baso # (Auto) 0.0 Immature Gran # (Auto) 0.01 H Absolute Nucleated RBC 0.00 Immature Gran % 0 Nucleated RBC % 0 Sodium 139 Potassium 4.4 Chloride 107 Carbon Dioxide 24.5 Anion Gap 8 BUN 11 Creatinine 0.9 Estim Creat Clear Calc 69.3 eGFR > 60 BUN/Creatinine Ratio [address] Glu mg/dL 160 H Hemoglobin A1c 7.2 H Calculated Osmolality 278 Calcium 9.0 Corrected Calcium 9.0 Phosphorus 4.5 Magnesium 2.0 Total Bilirubin 0.7 AST 27 ALT 30 Alkaline Phosphatase 69 Total Protein 6.6 Albumin 4.3 D Globulin 2.3 Albumin/Globulin Ratio 1.9 TSH 0.83 Quality Measures Quality Measures none Assessment & Plan Assessment Current Active Medications: Generic Name Dose Route Start Last Admin Trade Name Freq PRN Reason Stop Dose Admin Acetaminophen 650 mg 06/25/24 23:13 Acetaminophen 325 Mg Tablet PO 07/25/24 23:12 Q6H PRN Fever >100.3 or pain Dextrose 25 ml 06/26/24 00:21 Dextrose 50%-Water Inj 50 Ml Syringe IV 07/26/24 00:20 Q15MIN PRN BG 50-70 responsive npo pt Dextrose 50 ml 06/26/24 00:21 Dextrose 50%-Water Inj 50 Ml Syringe IV 07/26/24 00:20 Q15MIN PRN BG <50 OR BG <70 & pt unresponsive Glucagon 1 mg 06/26/24 00:21 Glucagon Inj 1 Mg Vial IM Q15MIN PRN BG <70, and no IV access Ciprofloxacin/Dextrose 400 mg in 200 mls @ 200 mls/hr 06/26/24 09:00 06/26/24 09:28 Cipro Ivpb IV 07/03/24 08:59 Infused Q12HR CHAPARRITA Infusion Metronidazole 500 mg in 100 mls @ 200 mls/hr 06/26/24 06:00 06/26/24 14:08 Flagyl 500 Mg Iv IV 07/03/24 05:59 200 mls/hr Q8HR CHAPARRITA Administration Insulin Human Lispro 0 unit 06/26/24 07:30 06/26/24 11:10 Insulin Lispro (Admelog) 1 Unit/0.01 Ml Unit SC 07/26/24 07:29 Not Given AC CHAPARRITA Protocol Morphine Sulfate 2 mg 06/25/24 23:20 06/26/24 11:09 Morphine Sulf Inj 10 Mg/Ml Vial IVP 06/30/24 23:19 2 mg Q4HR PRN Administration pain 4-10 Ondansetron HCl 4 mg 06/25/24 23:13 06/26/24 11:08 Ondansetron Inj 2 Mg/Ml Inj 2 Ml IV 07/25/24 23:12 4 mg Q6H PRN Administration NAUSEA OR VOMITING Protocol Pantoprazole Sodium 40 mg 06/26/24 09:00 06/26/24 08:18 Pantoprazole Inj 40 Mg Vial IVP 07/26/24 08:59 40 mg Q12HR CHAPARRITA Administration Plan Fransisca Stroud is 59 yr F with PMH of type 2 diabetes, hypertension, sleeve gastrectomy presenting to the ED due to abdominal pain and multiple episodes of melena. Patient will be admitted for IV antibiotics in setting of colitis. #Colitis #ND bleed #History of sleeve gastrectomy Patient presented with maroon-colored stools with 2 days of vomiting prior CT abdomen pelvis showed colitis pattern. Plan: ? Stool studies ordered including stool for WBC, calprotectin, Giardia, H. pylori and norovirus ? Repeat H&H at 6 PM today - Ciprofloxacin 400mg BID (06/25- - Metronidazole 500 mg TID (06/25- - Liquid diet - Zofran as needed ? GI, Dr. Johnson consulted. Appreciate recommendations #History of type 2 diabetes On admission initial glucose 194. Last A1c 7.1 on 04/15. Patient takes Jardiance 25mg daily for diabetes at home. - Held home medications - Bedside blood glucose checks ACHS - Insulin lispro sliding scale - Carb consistent low diet - Consulted loans officer - A1c pending #Hx HTN #Hx HLD Currently BP 117/58 Plan: ? Will hold home medication for now. Health maintenance: Disposition: Pending GI consult Diet: Full liquid Lines: pIVs GI Prophylaxis: Pantoprazole 40 Mg IV twice daily Thrombo Prophylaxis: SCDs Code status: FULL CODE Plan of care discussed with Attending Dr. Gaffney and PGY 2 Dr. Maurice Benítez MD PGY 1 Disclaimer: This note was dictated by speech recognition. Minor errors in utility worker forge may be present due to voice recognition software. Attending Provider Attestation/Addendum I attest that I was physically present for the evaluation, physical examination, lab and imaging review of the patient with the residents. I discussed the case with the residents and agree with the findings and plans of care as documented above. Shawn Gaffney MD
[2024-06-26] MEDS: ACETAMINOPHEN 325 MG TABLET 650 MG PO ×2 (16:33→22:18)
[2024-06-26] MEDS: INSULIN LISPRO (AdmeLOG) 1 UNIT/0.01 ML UNIT SC (16:42)
[2024-06-26] MEDS: HYOSCYAMINE SULF 0.125 MG TAB.SUBL 0.25 MG PO ×2 (17:42→22:05)
[2024-06-26 18:28] LABS: Hematocrit 39.1 % (36.0-46.0); Hemoglobin 13.6 g/dL (12.0-16.0)
--- NOTE | 2024-06-26 22:27 | PD.IMCONS ---
HPI Data of Consult Requesting Physician: Shawn Gaffney MD Primary Care Provider: Physician No Primary/Family Consult Narrative Reason for consult: Pain abdomen bloody diarrhea, abnormal CTAP History of present illness: 59 years old female presented to the emergency room with 3-day history of bloody diarrhea with mucus and abdominal cramping and pain and low-grade fever at home She had a CT scan of the abdomen pelvis done in the emergency room which showed gastric sutures for the hiatal hernia fatty liver absent gallbladder entire colon shows wall thickening and hyperemia Patient was subsequently admitted after discussion with the ER physician logging assistant cc:: cc: Shawn Gaffney MD Review of Systems Review of Systems Systems Reviewed: All systems reviewed, normal except as documented Past Medical History Surgical History OTHER SURGICAL HX: As in the history of present illness Meds Home Medications and Allergies Home Medications ?Medication ?Instructions ?Recorded ?Confirmed ?Type pantoprazole 40 mg tablet,delayed 40 mg PO QDAY 11/24/17 06/26/24 History release (Protonix) acetaminophen 500 mg oral powder 500 mg PO Q6H PRN Pain (Scale 04/27/23 06/26/24 History packet Score 4-6) atorvastatin 20 mg tablet 20 mg PO QDAY 04/27/23 06/26/24 History dicyclomine 20 mg tablet 20 mg PO QID PRN Abdominal Pain 04/27/23 06/26/24 History duloxetine 20 mg capsule,delayed 20 mg PO QDAY 04/27/23 06/26/24 History release docusate sodium 100 mg capsule 100 mg PO QDAY 06/26/24 06/26/24 History empagliflozin 25 mg tablet 25 mg PO QDAY 06/26/24 06/26/24 History (Jardiance) magnesium 250 mg tablet 250 mg PO QDAY 06/26/24 06/26/24 History multivitamin (Daily Multi-Vitamin 1 tab PO QDAY 06/26/24 06/26/24 History tablet) tizanidine 2 mg tablet 2 mg PO Q12H PRN muscle spasm 06/26/24 06/26/24 History varenicline tartrate 1 mg tablet 1 mg PO BID 06/26/24 06/26/24 History Allergies Allergy/AdvReac Type Severity Reaction Status Date / Time morphine Allergy Mild Hives Verified 06/26/24 10:04 Sulfa (Sulfonamide Allergy Swelling Verified 06/25/24 14:10 Antibiotics) of Lip/Tongue/Throat codeine AdvReac Severe SICK TO Verified 06/25/24 14:10 STOMACH Exam Vital Signs Temp Pulse Resp BP Pulse Ox O2 Del Method 96.9 F 71 18 133/79 H 99 Room Air 06/26/24 20:00 06/26/24 20:00 06/26/24 20:00 06/26/24 20:00 06/26/24 20:00 06/26/24 20:00 Constitutional Comments: Alert oriented Routine Abdominal Exam Comments: Soft tender active bowel sounds Results Labs 06/27/24 04:47 06/27/24 04:47 Labs: Short CBC 06/26/24 06/26/24 Range/Units 04:40 18:11 WBC 6.6 (3.6-11.0) Thou/mm3 Hgb 13.2 13.6 (12.0-16.0) g/dL Hct 38.5 39.1 (36.0-46.0) % Plt Count 137 L D (140-440) Thou/mm3 BMP 06/26/24 04:40 Sodium 139 Potassium 4.4 Chloride 107 Carbon Dioxide 24.5 BUN 11 Creatinine 0.9 Glucose 129 H D Calcium 9.0 Liver Function 06/26/24 Range/Units 04:40 Total Bilirubin 0.7 (0.3-1.2) mg/dL AST 27 (0-34) U/L ALT 30 (10-49) U/L Alkaline Phosphatase 69 (46-116) U/L Albumin 4.3 D (3.4-4.8) gm/dL Assessment and Plan Additional Assessment & Plan Additional Plan: Bloody mucousy diarrhea with abdominal pain and abnormal CT scan of the abdomen pelvis showing thickening and hyperemia of the colon Differential diagnosis include Infectious enterocolitis versus inflammatory bowel disease Plan Complete stool panel with Gram stain culture and sensitivity C. difficile Giardia antigen fecal calprotectin ANCA antibody Broad-spectrum coverage with IV ciprofloxacin and Flagyl discussed that with the ER physician and started in the ER after panculture If the culture and sensitivity and the C. difficile is negative Will consider fiberoptic colonoscopy prior to discharge with biopsies for further diagnosis and therapeutic intervention Other medical problems include Essential hypertension Hyperlipidemia Diabetes mellitus type 2 Thank you once again for the opportunity to participate in the care of this patient
[2024-06-27] VITALS (7 sets, daily range): BP systolic 111–128; BP diastolic 61–81; PULSE 65–84; RESP 15–98; TEMP 36.1–37.1; O2SAT 94–98
[2024-06-27 00:46] LABS: Stool for WBCs 1+ (Negative)
[2024-06-27] MEDS: metroNIDAZOLE/NS 500 MG IVPB 500 MG/100 ML BAG 200 MG IV ×3 (05:13→21:07)
[2024-06-27 05:45] LABS: Basophils % (Auto) 0 % (0-2.5); Eosinophils # (Auto) 0.1 Thou/mm3 (0.0-0.5); Eosinophils % (Auto) 3 % (0-10); Hematocrit 39.2 % (36.0-46.0); Hemoglobin 13.7 g/dL (12.0-16.0); Immature Granulocytes % (Auto) 0 % (0-0); Immature Granulocytes Auto 0.01 Thou/mm3 (0.00-0.00); Lymphocytes # (Auto) 1.9 Thou/mm3 (1.0-4.8); Lymphocytes % (Auto) 42 % (10-50); Mean Corpuscular HGB Conc 34.9 g/dl (31.0-37.0); Mean Corpuscular Hemoglobin 30.5 pg (25.0-35.0); Mean Corpuscular Volume 87 fL (80-100); Monocytes # (Auto) 0.3 Thou/mm3 (0.0-0.8); Monocytes % (Auto) 7 % (0-12); Neutrophils # (Auto) 2.1 Thou/mm3 (1.8-7.7); Neutrophils % (Auto) 48 % (37-80); Nucleated Red Blood Cell % 0 /100 WBC (0); Platelet Count 158 Thou/mm3 (140-440); RDW Standard Deviation 40.9 fL (36.4-46.3); Red Blood Count 4.49 Miln/mm3 (4.00-5.20); White Blood Count 4.5 Thou/mm3 (3.6-11.0)
[2024-06-27 06:28] LABS: Alanine Aminotransferase 29 U/L (10-49); Albumin, Serum 4.3 gm/dL (3.4-4.8); Albumin/Globulin Ratio 1.8 (1.2-2.2); Alkaline Phosphatase 71 U/L (46-116); Anion Gap 9 (7-16); Aspartate Amino Transferase 27 U/L (0-34); BUN/Creatinine Ratio 10 Ratio (12-20); Bilirubin,Total 0.5 mg/dL (0.3-1.2); Blood Urea Nitrogen 8 mg/dL (9-23); C-Reactive Protein < 0.5 mg/dL (0.0-0.9); Calcium 9.2 mg/dL (8.3-10.6); Calcium (Corrected) 9.2 mg/dL (8.5-10.1); Carbon Dioxide 25.5 mMol/L (20.0-31.0); Chloride 108 mMol/L (98-107); Creatinine (Component) 0.8 mg/dL (0.6-1.3); Estimated Creatinine Clearance 77.6 mL/min (>60); Globulin 2.4 gm/dL (2.3-3.5); Glucose 141 mg/dL (74-106); Osmolality,Calculated 283 (275-295); Sodium 142 mMol/L (136-145); Total Protein 6.7 gm/dL (5.7-8.2); eGFR > 60 See Note
[2024-06-27 06:45] LABS: Sed Rate (ESR) 7 mm/hr (0-30)
[2024-06-27] MEDS: HYOSCYAMINE SULF 0.125 MG TAB.SUBL 0.25 MG PO ×5 (07:14→21:03)
[2024-06-27] MEDS: CIPROFLOXACIN/D5w 400 MG IVPB 400 MG/200 ML BAG 200 MG IV (08:09)
[2024-06-27] MEDS: PANTOPRAZOLE INJ 40 MG VIAL IVP ×2 (08:09→21:07)
--- NOTE | 2024-06-27 09:17 | PC.SS ---
Follow up note: Pt is on IV antibiotic. GI work up.
[2024-06-27] MEDS: ACETAMINOPHEN 325 MG TABLET 650 MG PO ×2 (10:26→21:03)
[2024-06-27 10:41] LABS: Clostridium Difficile PCR Negative (Negative)
[2024-06-27] MEDS: INSULIN LISPRO (AdmeLOG) 1 UNIT/0.01 ML UNIT SC (11:05)
--- NOTE | 2024-06-27 12:02 | PC.SS ---
SS met with patient regarding her d/c plan. Pt is alert/oriented. Pt was admitted for Colitis. Pt confirmed demographic and contact information is correct on facesheet. Pt resides with and son. Pt ambulates independently without assistance or DME. Pt is ok with all ADLs. Patient?s pharmacy of choice is [facility] [address]. Pt named her , Jessieruma Saldana medical decision maker if she is unable. SS provided verbal choices for d/c to home or SNF. Patient?s choice is to return home upon d/c. Pt states she is diabetic, has glucometer, and test strips. Pt followed up with PCP 3 days ago. Pt states she has [facility] caregiver, Rozina Kirkland, phone# [phone]. will provide transportation. D/C plan: Return home Next of Kin: Jessie Saldana dtr, phone# [phone] PCP: [facility]. Garcia from [facility] Address: Correct on facesheet
--- NOTE | 2024-06-27 16:38 | PD.HHPROG ---
Documentation for date of: 06/27/24 Subjective - Hospitalist Subjective Interval history: At bedside today, patient stated she is feeling well. Continues to have loose bowel movement but denies any nausea or vomiting. Vital signs have been stable. Lab results have been stable as well. Culture results are still pending. Stool studies showed 1+ WBC, C. difficile is negative rest of the studies are pending. Gastroenterology following, plans to perform colonoscopy after the culture results, appreciate recommendations. Review of Systems Review of Systems Systems Reviewed: All systems reviewed, normal except as documented Exam Vital Signs Temp Pulse Resp BP Pulse Ox O2 Del Method 97.0 F 79 18 111/81 94 L Room Air 06/27/24 20:00 06/27/24 20:00 06/27/24 20:00 06/27/24 20:00 06/27/24 20:00 06/27/24 20:00 Narrative General: Alert and oriented, comfortable, able to answer questions and follow commands appropriately HEENT: EOMI, PERRLA, no pallor or icterus Cardio: RRR, S1 and S2 heard without murmurs Respiratory: Clear to auscultate bilaterally, no wheeze or crackles Abdomen: Soft, nontender, nondistended, bowel sound present MSK: No edema Neuro:Alert and Oriented x 4, moving all her extremities Psych: Appropriate mood and behaviour Objective - Hospitalist Labs Diagram: 06/27/24 04:47 06/27/24 04:47 Labs: Laboratory Results - last 24 hr 06/26/24 06/27/24 23:05 04:47 WBC 4.5 RBC 4.49 Hgb 13.7 Hct 39.2 MCV 87 MCH 30.5 MCHC 34.9 RDW Std Deviation 40.9 Plt Count 158 Neut % (Auto) 48 Lymph % (Auto) 42 [place] % (Auto) 7 Eos % (Auto) 3 Baso % (Auto) 0 Neut # (Auto) 2.1 Lymph # (Auto) 1.9 [place] # (Auto) 0.3 Eos # (Auto) 0.1 Baso # (Auto) 0.0 Immature Gran # (Auto) 0.01 H Absolute Nucleated RBC 0.00 Immature Gran % 0 Nucleated RBC % 0 ESR 7 Sodium 142 Potassium 4.0 Chloride 108 H Carbon Dioxide 25.5 Anion Gap 9 BUN 8 L Creatinine 0.8 Estim Creat Clear Calc 77.6 eGFR > 60 BUN/Creatinine Ratio 10 L Glucose 141 H Calculated Osmolality 283 Calcium 9.2 Corrected Calcium 9.2 Total Bilirubin 0.5 AST 27 ALT 29 Alkaline Phosphatase 71 C-Reactive Prot, Quant < 0.5 Total Protein 6.7 Albumin 4.3 Globulin 2.4 Albumin/Globulin Ratio 1.8 Stool for White Cells 1+ A Stl C. diff Tox B Gene Negative Assessment & Plan Assessment: Fransisca Stroud is 59 yr F with PMH of type 2 diabetes, hypertension, sleeve gastrectomy presenting to the ED due to abdominal pain and multiple episodes of melena. Patient will be admitted for IV antibiotics in setting of colitis. #Colitis #GA bleed #History of sleeve gastrectomy Patient presented with maroon-colored stools with 2 days of vomiting prior CT abdomen pelvis showed colitis pattern. Plan: ? Stool studies show 1+ WBC, negative C. difficile, calprotectin, Giardia, H. pylori, norovirus pending, stool culture pending - Ciprofloxacin 400mg BID (06/25- - Metronidazole 500 mg TID (06/25- - Protonix IV - Full Liquid diet - Zofran as needed ? Gastroenterology following, appreciate recommendations #History of type 2 diabetes On admission initial glucose 194. Hemoglobin A1c of 7.2, patient takes Jardiance 25mg daily for diabetes at home. - Held home medications - Bedside blood glucose checks ACHS - Insulin lispro sliding scale - Carb consistent low diet - Consulted air turning machine feeder #Hx HTN #Hx HLD Blood pressure stable currently Plan: ? Will hold home medication for now. Diet: Full liquid GI Prophylaxis: Pantoprazole 40 Mg IV twice daily Thrombo Prophylaxis: SCDs Code status: FULL CODE Shawn Gaffney MD Time Spent with Patient Time: Total time spent is greater than 50% in coordination of care (as documented) at patient's floor/unit and/or counseling patient: Time with patient: Greater than 35 minutes Reason for Continued Stay Reason for continued stay: IV antibiotics Quality Measures Quality Measures none
--- NOTE | 2024-06-27 18:14 | ESPR_ITS ---
Documentation for date of: 06/27/24 Subjective Subjective Interval history: C. difficile enterotoxin is negative Culture and sensitivity is still pending of the stool Exam Vital Signs Temp Pulse Resp BP Pulse Ox O2 Del Method 98.7 F 84 16 128/61 96 Room Air 06/27/24 16:00 06/27/24 16:00 06/27/24 16:00 06/27/24 16:00 06/27/24 16:00 06/27/24 04:00 Objective Labs 06/27/24 04:47 06/27/24 04:47 Labs: Laboratory Results - last 24 hr 06/26/24 06/26/24 06/27/24 18:11 23:05 04:47 WBC 4.5 RBC 4.49 Hgb 13.6 13.7 Hct 39.1 39.2 MCV 87 MCH 30.5 MCHC 34.9 RDW Std Deviation 40.9 Plt Count 158 Neut % (Auto) 48 Lymph % (Auto) 42 [place] % (Auto) 7 Eos % (Auto) 3 Baso % (Auto) 0 Neut # (Auto) 2.1 Lymph # (Auto) 1.9 [place] # (Auto) 0.3 Eos # (Auto) 0.1 Baso # (Auto) 0.0 Immature Gran # (Auto) 0.01 H Absolute Nucleated RBC 0.00 Immature Gran % 0 Nucleated RBC % 0 ESR 7 Sodium 142 Potassium 4.0 Chloride 108 H Carbon Dioxide 25.5 Anion Gap 9 BUN 8 L Creatinine 0.8 Estim Creat Clear Calc 77.6 eGFR > 60 BUN/Creatinine Ratio 10 L Glucose 141 H Calculated Osmolality 283 Calcium 9.2 Corrected Calcium 9.2 Total Bilirubin 0.5 AST 27 ALT 29 Alkaline Phosphatase 71 C-Reactive Prot, Quant < 0.5 Total Protein 6.7 Albumin 4.3 Globulin 2.4 Albumin/Globulin Ratio 1.8 Stool for White Cells 1+ A Stl C. diff Tox B Gene Negative Impressions Impression: Enterocolitis inflammatory versus infectious Continue current management Will wait till tomorrow for the cultures as do the stool is negative we will schedule a colonoscopy Assessment & Plan A&P Narrative Bloody mucousy diarrhea with abdominal pain and abnormal CT scan of the abdomen pelvis showing thickening and hyperemia of the colon Differential diagnosis include Infectious enterocolitis versus inflammatory bowel disease Plan Complete stool panel with Gram stain culture and sensitivity C. difficile Giardia antigen fecal calprotectin ANCA antibody Broad-spectrum coverage with IV ciprofloxacin and Flagyl discussed that with the ER physician and started in the ER after panculture If the culture and sensitivity and the C. difficile is negative Will consider fiberoptic colonoscopy prior to discharge with biopsies for further diagnosis and therapeutic intervention Other medical problems include Essential hypertension Hyperlipidemia Diabetes mellitus type 2 Thank you once again for the opportunity to participate in the care of this patient Time Spent With Patient Time: Total time spent is greater than 50% in coordination of care (as documented) at patient's floor/unit and/or counseling patient:
[2024-06-27] MEDS: CIPROFLOXACIN HCL 250 MG TABLET 500 MG PO (23:30)
[2024-06-28] VITALS: BP 116/74; PULSE 71; RESP 18; TEMP 36.1; O2SAT 99
[2024-06-28 04:00] VITALS: BP 128/75; PULSE 73; RESP 18; TEMP 36.1; O2SAT 97
[2024-06-28] MEDS: HYOSCYAMINE SULF 0.125 MG TAB.SUBL 0.25 MG PO ×5 (05:16→21:40)
[2024-06-28] MEDS: metroNIDAZOLE/NS 500 MG IVPB 500 MG/100 ML BAG 200 MG IV ×3 (05:17→21:50)
[2024-06-28 06:20] LABS: Alanine Aminotransferase 33 U/L (10-49); Albumin, Serum 4.3 gm/dL (3.4-4.8); Alkaline Phosphatase 66 U/L (46-116); Anion Gap 8 (7-16); Aspartate Amino Transferase 35 U/L (0-34); BUN/Creatinine Ratio 9 Ratio (12-20); Bilirubin,Total 0.5 mg/dL (0.3-1.2); Blood Urea Nitrogen 6 mg/dL (9-23); Calcium 8.8 mg/dL (8.3-10.6); Calcium (Corrected) 8.8 mg/dL (8.5-10.1); Carbon Dioxide 22.6 mMol/L (20.0-31.0); Chloride 111 mMol/L (98-107); Creatinine (Component) 0.7 mg/dL (0.6-1.3); Estimated Creatinine Clearance 88.7 mL/min (>60); Globulin 2.2 gm/dL (2.3-3.5); Glucose 129 mg/dL (74-106); Osmolality,Calculated 282 (275-295); Potassium 4.1 mMol/L (3.4-5.1); Sodium 142 mMol/L (136-145); Total Protein 6.5 gm/dL (5.7-8.2); eGFR > 60 See Note
[2024-06-28 06:59] LABS: Basophils % (Auto) 1 % (0-2.5); Eosinophils # (Auto) 0.1 Thou/mm3 (0.0-0.5); Eosinophils % (Auto) 2 % (0-10); Hematocrit 37.6 % (36.0-46.0); Hemoglobin 13.4 g/dL (12.0-16.0); Immature Granulocytes % (Auto) 0 % (0-0); Immature Granulocytes Auto 0.01 Thou/mm3 (0.00-0.00); Lymphocytes # (Auto) 1.6 Thou/mm3 (1.0-4.8); Lymphocytes % (Auto) 39 % (10-50); Mean Corpuscular HGB Conc 35.6 g/dl (31.0-37.0); Mean Corpuscular Hemoglobin 30.1 pg (25.0-35.0); Mean Corpuscular Volume 85 fL (80-100); Monocytes # (Auto) 0.3 Thou/mm3 (0.0-0.8); Monocytes % (Auto) 7 % (0-12); Neutrophils # (Auto) 2.1 Thou/mm3 (1.8-7.7); Neutrophils % (Auto) 51 % (37-80); Nucleated Red Blood Cell % 0 /100 WBC (0); Platelet Count 156 Thou/mm3 (140-440); RDW Standard Deviation 40.4 fL (36.4-46.3); Red Blood Count 4.45 Miln/mm3 (4.00-5.20); White Blood Count 4.2 Thou/mm3 (3.6-11.0)
[2024-06-28 08:00] VITALS: BP 123/73; PULSE 78; RESP 17; TEMP 36.3; O2SAT 98
[2024-06-28] MEDS: PANTOPRAZOLE INJ 40 MG VIAL IVP ×2 (09:27→21:45)
[2024-06-28] MEDS: ACETAMINOPHEN 325 MG TABLET 650 MG PO ×2 (09:28→21:43)
[2024-06-28] MEDS: CIPROFLOXACIN HCL 250 MG TABLET 500 MG PO ×2 (09:28→21:42)
--- NOTE | 2024-06-28 10:25 | PD.RESPRO ---
Documentation for date of: 06/28/24 Subjective Subjective Interval history: Patient was seen and examined at bedside this AM. No acute exents overnight. Patient tolerating diet, adequate urine output and mentation is at baseline. Patient had 5 episodes of watery diarrhea since yesterday. Had 1 dark-colored stool today. C. difficile negative. Stool culture negative final. Pending calprotectin, Giardia, H. pylori. Started on GoLytely prep. For colonoscopy once cleared. Prepared Foods Team Leader, Dr. Johnson closely following the case. Appreciate recommendations Exam Vital Signs Temp Pulse Resp BP Pulse Ox O2 Del Method 97.4 F 78 17 123/73 98 Room Air 06/28/24 08:00 06/28/24 08:00 06/28/24 08:00 06/28/24 08:00 06/28/24 08:00 06/28/24 08:00 Narrative Exam Constitutional Alert, oriented x 3 and comfortable HEENT Vision grossly intact. Patent nares. Trachea midline Respiratory Chest normal on inspection and clear auscultation bilaterally Cardiovascular S1 and S2 audible, RRR. No murmurs carotid bruit. No gross JVD. Abdominal Soft and tender to palpation tender left lower quadrant with guarding. BS + Genitourinary No bladder tenderness, no flank pain. Normal to palpation Musculoskeletal Extremities tone within normal limits. No LE edema. Neurological CN II - XII grossly intact. Extremity motor and sensation grossly intact. Skin Warm, dry and intact. No apparent lesions. Psychiatric Patient has good affect, is cooperative Objective Labs 06/28/24 06:25 06/28/24 04:47 Labs: Laboratory Results - last 24 hr 06/26/24 06/28/24 06/28/24 23:05 04:47 06:25 WBC 4.2 RBC 4.45 Hgb 13.4 Hct 37.6 MCV 85 MCH 30.1 MCHC 35.6 RDW Std Deviation 40.4 Plt Count 156 Neut % (Auto) 51 Lymph % (Auto) 39 [place] % (Auto) 7 Eos % (Auto) 2 Baso % (Auto) 1 Neut # (Auto) 2.1 Lymph # (Auto) 1.6 [place] # (Auto) 0.3 Eos # (Auto) 0.1 Baso # (Auto) 0.0 Immature Gran # (Auto) 0.01 H Absolute Nucleated RBC 0.00 Immature Gran % 0 Nucleated RBC % 0 Sodium 142 Potassium 4.1 Chloride 111 H Carbon Dioxide 22.6 Anion Gap 8 BUN 6 L Creatinine 0.7 Estim Creat Clear Calc 88.7 eGFR > 60 BUN/Creatinine Ratio 9 L Glucose 129 H Calculated Osmolality 282 Calcium 8.8 Corrected Calcium 8.8 Total Bilirubin 0.5 AST 35 H ALT 33 Alkaline Phosphatase 66 Total Protein 6.5 Albumin 4.3 Globulin 2.2 L Albumin/Globulin Ratio 2.0 Stl C. diff Tox B Gene Negative Quality Measures Quality Measures none Assessment & Plan Assessment Current Active Medications: Generic Name Dose Route Start Last Admin Trade Name Freq PRN Reason Stop Dose Admin Acetaminophen 650 mg 06/27/24 08:06 06/28/24 09:28 Acetaminophen 325 Mg Tablet PO 07/25/24 23:12 650 mg Q6H PRN Administration Fever >100.3 or pain(1-3) Ciprofloxacin 500 mg 06/27/24 23:15 06/28/24 09:28 Ciprofloxacin Hcl 250 Mg Tablet PO 07/04/24 23:14 500 mg BID CHAPARRITA Administration Dextrose 25 ml 06/26/24 00:21 Dextrose 50%-Water Inj 50 Ml Syringe IV 07/26/24 00:20 Q15MIN PRN BG 50-70 responsive npo pt Dextrose 50 ml 06/26/24 00:21 Dextrose 50%-Water Inj 50 Ml Syringe IV 07/26/24 00:20 Q15MIN PRN BG <50 OR BG <70 & pt unresponsive Glucagon 1 mg 06/26/24 00:21 Glucagon Inj 1 Mg Vial IM Q15MIN PRN BG <70, and no IV access Hyoscyamine 0.25 mg 06/26/24 18:00 06/28/24 09:28 Hyoscyamine Sulf 0.125 Mg Tab.Subl PO 07/26/24 17:59 0.25 mg Q4HR CHAPARRITA Administration Metronidazole 500 mg in 100 mls @ 200 mls/hr 06/26/24 06:00 06/28/24 05:17 Flagyl 500 Mg Iv IV 07/03/24 05:59 200 mls/hr Q8HR CHAPARRITA Administration Insulin Human Lispro 0 unit 06/26/24 07:30 06/27/24 17:07 Insulin Lispro (Admelog) 1 Unit/0.01 Ml Unit SC 07/26/24 07:29 Not Given AC COUNTS INCLUDE 234 BEDS AT THE [facility] Protocol Ketorolac Tromethamine 15 mg 06/26/24 16:30 Ketorolac Inj 30 Mg/Ml Vial IVP 07/01/24 16:29 Q6HR PRN PAIN SCALE 7-10 (Severe Ondansetron HCl 4 mg 06/25/24 23:13 06/26/24 11:08 Ondansetron Inj 2 Mg/Ml Inj 2 Ml IV 07/25/24 23:12 4 mg Q6H PRN Administration NAUSEA OR VOMITING Protocol Pantoprazole Sodium 40 mg 06/26/24 09:00 06/28/24 09:27 Pantoprazole Inj 40 Mg Vial IVP 07/26/24 08:59 40 mg Q12HR CHAPARRITA Administration Plan Fransisca Stroud is 59 yr F with PMH of type 2 diabetes, hypertension, sleeve gastrectomy presenting to the ED due to abdominal pain and multiple episodes of melena. Patient will be admitted for IV antibiotics in setting of colitis. #Colitis #[place] bleed #History of sleeve gastrectomy DDx: Diverticulitis, IBD, infectious diarrhea, gastroenteritis Patient presented with maroon-colored stools with 2 days of vomiting prior CT abdomen pelvis showed colitis pattern. Stool studies show 1+ WBC, negative C. difficile. Stool culture negative Plan: ? Clear liquid diet ? Pending calprotectin, Giardia, H. pylori, norovirus pending - Ciprofloxacin 400mg IV BID (06/25- - Metronidazole 500 mg IV TID (06/25- - Protonix IV - Zofran as needed ? GoLytely bowel prep. For colonoscopy once cleared ? Gastroenterology, Dr. Johnson following, appreciate recommendations #History of type 2 diabetes On admission initial glucose 194. Hemoglobin A1c of 7.2, patient takes Jardiance 25mg daily for diabetes at home. Plan: - Bedside blood glucose checks ACHS - Insulin lispro sliding scale - Carb consistent low diet - Consulted v groove cutter #Hx HTN #Hx HLD Blood pressure stable currently Plan: ? Will hold home medication for now. Health maintenance: Disposition: GoLytely bowel prep, for colonoscopy once cleared. Diet: Clear liquid Lines: pIVs GI Prophylaxis: Pantoprazole Thrombo Prophylaxis: SCDs Code status: FULL CODE Plan of care discussed with Attending Dr. Gulshan Benítez MD PGY 1 Disclaimer: This note was dictated by speech recognition. Minor errors in high climber may be present due to voice recognition software. Attending Provider Attestation/Addendum I attest that I was physically present for the evaluation, physical examination, lab and imaging review of the patient with the residents. I discussed the case with the residents and agree with the findings and plans of care as documented above. Shawn Gaffney MD
[2024-06-28 12:00] VITALS: BP 133/81; PULSE 73; RESP 16; TEMP 36.5; O2SAT 98
--- NOTE | 2024-06-28 15:10 | ESPR_ITS ---
Documentation for date of: 06/28/24 Subjective Subjective Interval history: Patient evaluated Although stool culture sensitivity still pending in the computer however I called the microbiologist there is nothing on the plate growing at the moment Will schedule the patient after GoLytely prep for a colonoscopy Exam Vital Signs Temp Pulse Resp BP Pulse Ox O2 Del Method 97.7 F 73 16 133/81 H 98 Room Air 06/28/24 12:00 06/28/24 12:00 06/28/24 12:00 06/28/24 12:00 06/28/24 12:00 06/28/24 12:00 Objective Labs 06/28/24 06:25 06/28/24 04:47 Labs: Laboratory Results - last 24 hr 06/28/24 06/28/24 04:47 06:25 WBC 4.2 RBC 4.45 Hgb 13.4 Hct 37.6 MCV 85 MCH 30.1 MCHC 35.6 RDW Std Deviation 40.4 Plt Count 156 Neut % (Auto) 51 Lymph % (Auto) 39 [place] % (Auto) 7 Eos % (Auto) 2 Baso % (Auto) 1 Neut # (Auto) 2.1 Lymph # (Auto) 1.6 [place] # (Auto) 0.3 Eos # (Auto) 0.1 Baso # (Auto) 0.0 Immature Gran # (Auto) 0.01 H Absolute Nucleated RBC 0.00 Immature Gran % 0 Nucleated RBC % 0 Sodium 142 Potassium 4.1 Chloride 111 H Carbon Dioxide 22.6 Anion Gap 8 BUN 6 L Creatinine 0.7 Estim Creat Clear Calc 88.7 eGFR > 60 BUN/Creatinine Ratio 9 L Glucose 129 H Calculated Osmolality 282 Calcium 8.8 Corrected Calcium 8.8 Total Bilirubin 0.5 AST 35 H ALT 33 Alkaline Phosphatase 66 Total Protein 6.5 Albumin 4.3 Globulin 2.2 L Albumin/Globulin Ratio 2.0 Impressions Impression: Bloody and mucousy diarrhea along with abnormal CT scan of the abdomen pelvis showing hyperemia and thickening of the colonic wall GoLytely prep Colonoscopy a.m. Assessment & Plan A&P Narrative Bloody mucousy diarrhea with abdominal pain and abnormal CT scan of the abdomen pelvis showing thickening and hyperemia of the colon Differential diagnosis include Infectious enterocolitis versus inflammatory bowel disease Plan Complete stool panel with Gram stain culture and sensitivity C. difficile Giardia antigen fecal calprotectin ANCA antibody Broad-spectrum coverage with IV ciprofloxacin and Flagyl discussed that with the ER physician and started in the ER after panculture If the culture and sensitivity and the C. difficile is negative Will consider fiberoptic colonoscopy prior to discharge with biopsies for further diagnosis and therapeutic intervention Other medical problems include Essential hypertension Hyperlipidemia Diabetes mellitus type 2 Thank you once again for the opportunity to participate in the care of this patient Time Spent With Patient Time: Total time spent is greater than 50% in coordination of care (as documented) at patient's floor/unit and/or counseling patient:
[2024-06-28] MEDS: NA SU/NAHCO3/KC/PEG (Golytely) 4,000 ML BTL 4000 ML PO (15:37)
[2024-06-28 15:59] VITALS: BMI 29.7
[2024-06-28 16:00] VITALS: BP 112/63; PULSE 68; RESP 17; TEMP 36.1; O2SAT 98
[2024-06-28 20:00] VITALS: BP 124/69; PULSE 77; RESP 18; TEMP 36.7; O2SAT 97
[2024-06-29] VITALS (20 sets, daily range): BP systolic 101–158; BP diastolic 56–90; PULSE 63–97; RESP 10–20; TEMP 36.1–37.1; O2SAT 92–100
[2024-06-29] MEDS: metroNIDAZOLE/NS 500 MG IVPB 500 MG/100 ML BAG 200 MG IV ×3 (05:31→23:38)
[2024-06-29] MEDS: HYOSCYAMINE SULF 0.125 MG TAB.SUBL 0.25 MG PO ×4 (05:31→23:36)
[2024-06-29 05:38] LABS: Basophils % (Auto) 1 % (0-2.5); Eosinophils # (Auto) 0.1 Thou/mm3 (0.0-0.5); Eosinophils % (Auto) 2 % (0-10); Hematocrit 37.8 % (36.0-46.0); Hemoglobin 13.2 g/dL (12.0-16.0); Immature Granulocytes % (Auto) 0 % (0-0); Immature Granulocytes Auto 0.01 Thou/mm3 (0.00-0.00); Lymphocytes # (Auto) 2.1 Thou/mm3 (1.0-4.8); Lymphocytes % (Auto) 48 % (10-50); Mean Corpuscular HGB Conc 34.9 g/dl (31.0-37.0); Mean Corpuscular Hemoglobin 30.4 pg (25.0-35.0); Mean Corpuscular Volume 87 fL (80-100); Monocytes # (Auto) 0.3 Thou/mm3 (0.0-0.8); Monocytes % (Auto) 8 % (0-12); Neutrophils # (Auto) 1.8 Thou/mm3 (1.8-7.7); Neutrophils % (Auto) 41 % (37-80); Nucleated Red Blood Cell % 0 /100 WBC (0); Platelet Count 154 Thou/mm3 (140-440); RDW Standard Deviation 41.5 fL (36.4-46.3); Red Blood Count 4.34 Miln/mm3 (4.00-5.20); White Blood Count 4.4 Thou/mm3 (3.6-11.0)
[2024-06-29 06:02] LABS: Anion Gap 7 (7-16); BUN/Creatinine Ratio 8 Ratio (12-20); Blood Urea Nitrogen 6 mg/dL (9-23); Calcium 8.9 mg/dL (8.3-10.6); Carbon Dioxide 29.1 mMol/L (20.0-31.0); Chloride 110 mMol/L (98-107); Creatinine (Component) 0.8 mg/dL (0.6-1.3); Glucose 115 mg/dL (74-106); Osmolality,Calculated 289 (275-295); Potassium 4.3 mMol/L (3.4-5.1); Sodium 146 mMol/L (136-145); eGFR > 60 See Note
[2024-06-29] MEDS: PANTOPRAZOLE INJ 40 MG VIAL IVP (08:46)
[2024-06-29] MEDS: CIPROFLOXACIN HCL 250 MG TABLET 500 MG PO ×2 (08:46→23:37)
--- NOTE | 2024-06-29 11:55 | SUR.PHASEI ---
1158 Patient arrived to recovery resting comfortably in [facility], drowsy and talking with staff, breathing unlabored, vital signs stable, denies pain and nausea, report received from Angelica BE
--- NOTE | 2024-06-29 12:26 | SUR.PHASEI ---
1221 Report given to Brian BE, patient meets discharge criteria from recovery, awake and alert-talking with staff, breathing unlabored, vital signs stable, denies pain and nausea, eating ice chips; tolerating well 1226 Patient transferred via gurney to room 351 without incident, patient able to ambulate from gurney to bed with stand by assist, patient resting comfortably in bed with call light in reach when this radio news writer left patient room
--- NOTE | 2024-06-29 12:35 | PD.RESPRO ---
Documentation for date of: 06/29/24 Subjective Subjective Interval history: Pt examined at bedside today. No acute overnight events. Pt reports she is tolerating the colonoscopy prep and is having bowel movements. She is wondering when she is going to get her procedure. Her abdominal pain is improving. No other complaints at this time. Exam Vital Signs Temp Pulse Resp BP Pulse Ox O2 Del Method O2 Flow Rate 97.2 F 80 14 147/70 H 98 Room Air 3 06/29/24 11:55 06/29/24 12:10 06/29/24 12:10 06/29/24 12:10 06/29/24 12:10 06/29/24 04:00 06/29/24 11:50 Narrative Exam General: AAOx3, NAD, overweight female HEENT: Moist mucous membranes, conjunctiva clear, EOMI, PERRLA, Cardiovascular: S1, S2, radial pulses +2 bilat, RRR Pulmonary: CTAB bilat no cough, no wheezing GI: Bowel sounds present, minimal tenderness to palpitation Extremities: No presence of trace or pitting edema in lower extremities bilaterally, dorsalis pedis pulses +2 bilaterally Neuro: AAOx3, no focal motor or sensory deficits in the UE or LE bilat Psych: Good judgement, thought and behavior Objective Labs 06/29/24 04:57 06/29/24 04:57 Labs: Laboratory Results - last 24 hr 06/29/24 04:57 WBC 4.4 RBC 4.34 Hgb 13.2 Hct 37.8 MCV 87 MCH 30.4 MCHC 34.9 RDW Std Deviation 41.5 Plt Count 154 Neut % (Auto) 41 Lymph % (Auto) 48 [place] % (Auto) 8 Eos % (Auto) 2 Baso % (Auto) 1 Neut # (Auto) 1.8 Lymph # (Auto) 2.1 [place] # (Auto) 0.3 Eos # (Auto) 0.1 Baso # (Auto) 0.0 Immature Gran # (Auto) 0.01 H Absolute Nucleated RBC 0.00 Immature Gran % 0 Nucleated RBC % 0 Sodium 146 H Potassium 4.3 Chloride 110 H Carbon Dioxide 29.1 Anion Gap 7 BUN 6 L Creatinine 0.8 Estim Creat Clear Calc 76.0 eGFR > 60 BUN/Creatinine Ratio 8 L Glucose 115 H Calculated Osmolality 289 Calcium 8.9 Quality Measures Quality Measures none Assessment & Plan Assessment Current Active Medications: Generic Name Dose Route Start Last Admin Trade Name Tomasq PRN Reason Stop Dose Admin Acetaminophen 650 mg 06/27/24 08:06 06/28/24 21:43 Acetaminophen 325 Mg Tablet PO 07/25/24 23:12 650 mg Q6H PRN Administration Fever >100.3 or pain(1-3) Ciprofloxacin 500 mg 06/27/24 23:15 06/29/24 08:46 Ciprofloxacin Hcl 250 Mg Tablet PO 07/04/24 23:14 500 mg BID CHAPARRITA Administration Dextrose 25 ml 06/26/24 00:21 Dextrose 50%-Water Inj 50 Ml Syringe IV 07/26/24 00:20 Q15MIN PRN BG 50-70 responsive npo pt Dextrose 50 ml 06/26/24 00:21 Dextrose 50%-Water Inj 50 Ml Syringe IV 07/26/24 00:20 Q15MIN PRN BG <50 OR BG <70 & pt unresponsive Glucagon 1 mg 06/26/24 00:21 Glucagon Inj 1 Mg Vial IM Q15MIN PRN BG <70, and no IV access Hyoscyamine 0.25 mg 06/26/24 18:00 06/29/24 10:31 Hyoscyamine Sulf 0.125 Mg Tab.Subl PO 07/26/24 17:59 Not Given Q4HR CHAPARRITA Metronidazole 500 mg in 100 mls @ 200 mls/hr 06/26/24 06:00 06/29/24 05:31 Flagyl 500 Mg Iv IV 07/03/24 05:59 200 mls/hr Q8HR CHAPARRITA Administration Insulin Human Lispro 0 unit 06/29/24 06:00 06/29/24 12:34 Insulin Lispro (Admelog) 1 Unit/0.01 Ml Unit SC 07/29/24 05:59 Not Given Q6HR [facility] Protocol Ketorolac Tromethamine 15 mg 06/26/24 16:30 Ketorolac Inj 30 Mg/Ml Vial IVP 07/01/24 16:29 Q6HR PRN PAIN SCALE 7-10 (Severe Ondansetron HCl 4 mg 06/25/24 23:13 06/26/24 11:08 Ondansetron Inj 2 Mg/Ml Inj 2 Ml IV 07/25/24 23:12 4 mg Q6H PRN Administration NAUSEA OR VOMITING Protocol Pantoprazole Sodium 40 mg 06/26/24 09:00 06/29/24 08:46 Pantoprazole Inj 40 Mg Vial IVP 07/26/24 08:59 40 mg Q12HR CHAPARRITA Administration Plan Assessment Fransisca Stroud is 59 yr F with PMH of type 2 diabetes, hypertension, sleeve gastrectomy presenting to the ED due to abdominal pain and multiple episodes of melena. Patient will be admitted for IV antibiotics in setting of colitis. #Colitis #[place] bleed #History of sleeve gastrectomy DDx: Diverticulitis, IBD, infectious diarrhea, gastroenteritis Patient presented with maroon-colored stools with [address] days of vomiting prior CT abdomen pelvis showed colitis pattern. Stool studies show 1+ WBC, negative C. difficile. Stool culture negative Colonoscopy today, will f/u with results and findings Plan: ? Clear liquid diet with colonoscopy prep ? Pending calprotectin, Giardia, H. pylori, norovirus pending - Ciprofloxacin 400mg IV BID (06/25- - Metronidazole 500 mg IV TID (06/25- - Protonix IV - Zofran as needed ? Gastroenterology, Dr. Johnson following, appreciate recommendations #History of type 2 diabetes On admission initial glucose 194. Hemoglobin A1c of 7.2, patient takes Jardiance 25mg daily for diabetes at home. Plan: - Bedside blood glucose checks ACHS - Insulin lispro sliding scale - Carb consistent low diet - Consulted manager business intelligence #Hx HTN #Hx HLD Blood pressure stable currently Plan: ? Will hold home medication for now. #Health Maintenance Disposition: MedSurg DVT prophylaxis: SCDs GI prophylaxis: Protonix Diet: Clear Liquid CODE STATUS: Full Patient seen and care discussed with my attending physician, Dr. Gulshan Disla, PGY-1 Attending Provider Attestation/Addendum I attest that I was physically present for the evaluation, physical examination, lab and imaging review of the patient with the residents. I discussed the case with the residents and agree with the findings and plans of care as documented above. Awaiting colonoscopy with GI today. Continues to be on ciprofloxacin and metronidazole IV. Pending fecal calprotectin, Giardia, H. pylori and norovirus studies. Continues to be on insulin regimen for diabetes. Shawn Gaffney MD
[2024-06-29] MEDS: ACETAMINOPHEN 325 MG TABLET 650 MG PO (14:12)
--- NOTE | 2024-06-29 16:38 | PC.SS ---
SS stopped by to discuss medicare information with pt; pt sleeping SS stopped by to discuss medicare information with pt; pt still getting procedure
[2024-06-29] MEDS: DULoxetine HCL 20 MG CAPSULE PO (17:26)
--- NOTE | 2024-06-29 17:33 | PC.NURSE ---
Dr. Hopper notified of patient having blood coming out of rectum post colonoscopy and moderate pain. Dr. Hopper verbalized will follow up with Dr. Johnson.
[2024-06-29] MEDS: KETOROLAC INJ 30 MG/ML VIAL 15 MG IVP (17:42)
[2024-06-29] MEDS: ONDANSETRON INJ 2 MG/ML INJ 2 ML 4 MG IV (17:42)
[2024-06-29] MEDS: PANTOPRAZOLE 40 MG TABLET PO (23:36)
[2024-06-30] VITALS: BP 130/73; PULSE 87; RESP 17; TEMP 36.2; O2SAT 99
[2024-06-30 04:00] VITALS: BP 121/61; RESP 17; TEMP 36.1; O2SAT 97
[2024-06-30] MEDS: metroNIDAZOLE/NS 500 MG IVPB 500 MG/100 ML BAG 200 MG IV ×3 (05:57→20:54)
[2024-06-30 06:12] LABS: Basophils % (Auto) 0 % (0-2.5); Eosinophils # (Auto) 0.1 Thou/mm3 (0.0-0.5); Eosinophils % (Auto) 3 % (0-10); Hematocrit 38.4 % (36.0-46.0); Hemoglobin 13.3 g/dL (12.0-16.0); Immature Granulocytes % (Auto) 0 % (0-0); Immature Granulocytes Auto 0.01 Thou/mm3 (0.00-0.00); Lymphocytes # (Auto) 2.1 Thou/mm3 (1.0-4.8); Lymphocytes % (Auto) 45 % (10-50); Mean Corpuscular HGB Conc 34.6 g/dl (31.0-37.0); Mean Corpuscular Hemoglobin 30.2 pg (25.0-35.0); Mean Corpuscular Volume 87 fL (80-100); Monocytes # (Auto) 0.4 Thou/mm3 (0.0-0.8); Monocytes % (Auto) 9 % (0-12); Neutrophils % (Auto) 43 % (37-80); Nucleated Red Blood Cell % 0 /100 WBC (0); Platelet Count 153 Thou/mm3 (140-440); RDW Standard Deviation 40.8 fL (36.4-46.3); White Blood Count 4.7 Thou/mm3 (3.6-11.0)
[2024-06-30 06:37] LABS: Anion Gap 5 (7-16); BUN/Creatinine Ratio 11 Ratio (12-20); Blood Urea Nitrogen 9 mg/dL (9-23); Calcium 8.6 mg/dL (8.3-10.6); Carbon Dioxide 26.1 mMol/L (20.0-31.0); Chloride 110 mMol/L (98-107); Creatinine (Component) 0.8 mg/dL (0.6-1.3); Glucose 118 mg/dL (74-106); Osmolality,Calculated 280 (275-295); Potassium 3.9 mMol/L (3.4-5.1); Sodium 141 mMol/L (136-145); eGFR > 60 See Note
[2024-06-30 08:00] VITALS: BP 143/74; PULSE 72; RESP 18; TEMP 36.4; O2SAT 98
[2024-06-30] MEDS: CIPROFLOXACIN HCL 250 MG TABLET 500 MG PO ×2 (08:32→20:52)
[2024-06-30] MEDS: PANTOPRAZOLE 40 MG TABLET PO ×2 (08:32→20:52)
[2024-06-30] MEDS: DULoxetine HCL 20 MG CAPSULE PO (08:33)
--- NOTE | 2024-06-30 09:00 | PC.SS ---
Follow up note: repeat Colonoscopy. Pt will return home upon dc.
--- NOTE | 2024-06-30 09:44 | PD.RESPRO ---
Documentation for date of: 06/30/24 Subjective Subjective Interval history: Patient was seen and examined at bedside this AM. No acute exents overnight. Patient tolerating diet, adequate urine output and mentation is at baseline. Patient complains of proctalgia and had some bright red NC bleed this morning. Colonoscopy completed on 06/29/2024 findings include: Grade 4 internal hemorrhoids. Therapeutic banding performed. Patient currently n.p.o. for repeat colonoscopy today to investigate continued NC bleed. Hb 13.3, HCT 38.4 stable. Bank Sales And Service Manager, Dr. Johnson consulted and closely following the case. Exam Vital Signs Temp Pulse Resp BP Pulse Ox O2 Del Method O2 Flow Rate 97.5 F 72 18 143/74 H 98 Room Air 3 06/30/24 08:00 06/30/24 08:00 06/30/24 08:00 06/30/24 08:00 06/30/24 08:00 06/30/24 08:00 06/29/24 11:50 Narrative Exam Constitutional Alert, oriented x 3 and comfortable. Elderly female HEENT Vision grossly intact. Patent nares. Trachea midline Respiratory Chest normal on inspection and clear auscultation bilaterally Cardiovascular S1 and S2 audible, RRR. No murmurs carotid bruit. No gross JVD. Abdominal Soft and tender to palpation in lower quadrant. BS + Genitourinary No bladder tenderness, no flank pain. Normal to palpation Musculoskeletal Extremities tone within normal limits. No LE edema. Neurological CN II - XII grossly intact. Extremity motor and sensation grossly intact. Skin Warm, dry and intact. No apparent lesions. Psychiatric Patient has good affect, is cooperative Objective Labs 06/30/24 05:25 06/30/24 05:25 Labs: Laboratory Results - last 24 hr 06/30/24 05:25 WBC 4.7 RBC 4.40 Hgb 13.3 Hct 38.4 MCV 87 MCH 30.2 MCHC 34.6 RDW Std Deviation 40.8 Plt Count 153 Neut % (Auto) 43 Lymph % (Auto) 45 [place] % (Auto) 9 Eos % (Auto) 3 Baso % (Auto) 0 Neut # (Auto) 2.0 Lymph # (Auto) 2.1 [place] # (Auto) 0.4 Eos # (Auto) 0.1 Baso # (Auto) 0.0 Immature Gran # (Auto) 0.01 H Absolute Nucleated RBC 0.00 Immature Gran % 0 Nucleated RBC % 0 Sodium 141 Potassium 3.9 Chloride 110 H Carbon Dioxide 26.1 Anion Gap 5 L BUN 9 Creatinine 0.8 Estim Creat Clear Calc 76.0 eGFR > 60 BUN/Creatinine Ratio 11 L Glucose 118 H Calculated Osmolality 280 Calcium 8.6 Quality Measures Quality Measures none Assessment & Plan Assessment Current Active Medications: Generic Name Dose Route Start Last Admin Trade Name Freq PRN Reason Stop Dose Admin Acetaminophen 650 mg 06/27/24 08:06 06/29/24 14:12 Acetaminophen 325 Mg Tablet PO 07/25/24 23:12 650 mg Q6H PRN Administration Fever >100.3 or pain(1-3) Ciprofloxacin 500 mg 06/27/24 23:15 06/30/24 08:32 Ciprofloxacin Hcl 250 Mg Tablet PO 07/04/24 23:14 500 mg BID CHAPARRITA Administration Dextrose 25 ml 06/26/24 00:21 Dextrose 50%-Water Inj 50 Ml Syringe IV 07/26/24 00:20 Q15MIN PRN BG 50-70 responsive npo pt Dextrose 50 ml 06/26/24 00:21 Dextrose 50%-Water Inj 50 Ml Syringe IV 07/26/24 00:20 Q15MIN PRN BG <50 OR BG <70 & pt unresponsive Duloxetine HCl 20 mg 06/29/24 14:55 06/30/24 08:33 Duloxetine Hcl 20 Mg Capsule PO 07/29/24 14:54 20 mg QDAY CHAPARRITA Administration Glucagon 1 mg 06/26/24 00:21 Glucagon Inj 1 Mg Vial IM Q15MIN PRN BG <70, and no IV access Hyoscyamine 0.25 mg 06/26/24 18:00 06/30/24 09:01 Hyoscyamine Sulf 0.125 Mg Tab.Subl PO 07/26/24 17:59 Not Given Q4HR CHAPARRITA Metronidazole 500 mg in 100 mls @ 200 mls/hr 06/26/24 06:00 06/30/24 05:57 Flagyl 500 Mg Iv IV 07/03/24 05:59 200 mls/hr Q8HR CHAPARRITA Administration Insulin Human Lispro 0 unit 06/29/24 06:00 06/30/24 05:56 Insulin Lispro (Admelog) 1 Unit/0.01 Ml Unit SC 07/29/24 05:59 Not Given Q6HR CHAPARRITA Protocol Ketorolac Tromethamine 15 mg 06/26/24 16:30 06/29/24 17:42 Ketorolac Inj 30 Mg/Ml Vial IVP 07/01/24 16:29 15 mg Q6HR PRN Administration PAIN SCALE 7-10 (Severe Ondansetron HCl 4 mg 06/25/24 23:13 06/29/24 17:42 Ondansetron Inj 2 Mg/Ml Inj 2 Ml IV 07/25/24 23:12 4 mg Q6H PRN Administration NAUSEA OR VOMITING Protocol Pantoprazole Sodium 40 mg 06/29/24 21:00 06/30/24 08:32 Pantoprazole 40 Mg Tablet PO 07/26/24 08:59 40 mg Q12HR CHAPARRITA Administration Plan Assessment Fransisca Stroud is 59 yr F with PMH of type 2 diabetes, hypertension, sleeve gastrectomy presenting to the ED due to abdominal pain and multiple episodes of melena. Patient will be admitted for IV antibiotics in setting of colitis. #Colitis #NC bleed #History of sleeve gastrectomy DDx: Diverticulitis, IBD, infectious diarrhea, gastroenteritis Patient presented with maroon-colored stools with [address] days of vomiting prior CT abdomen pelvis showed colitis pattern. Colonoscopy completed on 06/29/2024 findings include: Grade 4 internal hemorrhoids. Therapeutic banding performed. Stool studies show 1+ WBC, negative C. difficile. Stool culture negative Patient complains of proctalgia and had some bright red NC bleed this morning. Currently n.p.o. for repeat colonoscopy today to investigate continued NC bleed. Hb 13.3, HCT 38.4 stable. Plan: ? NPO. Ice chips as necessary ? Pending calprotectin, Giardia, H. pylori, norovirus pending - D6 ciprofloxacin 400mg IV BID (06/25- - D6 metronidazole 500 mg IV TID (06/25- - Protonix IV - Zofran as needed - For repeat colonoscopy today with possible therapeutic intervention. ? Gastroenterology, Dr. Johnson following, appreciate recommendations #History of type 2 diabetes On admission initial glucose 194. Hemoglobin A1c of 7.2, patient takes Jardiance 25mg daily for diabetes at home. Plan: - Bedside blood glucose checks ACHS - Insulin lispro sliding scale - Consulted environmental auditor #Hx HTN #Hx HLD Blood pressure stable currently Plan: ? Will hold home medication for now. #Health Maintenance Disposition: Repeat colonoscopy today. DVT prophylaxis: SCDs GI prophylaxis: Protonix Diet: N.p.o. CODE STATUS: Full Plan of care discussed with Attending Dr. Gulshan Benítez MD PGY 1 Disclaimer: This note was dictated by speech recognition. Minor errors in tobacco feeder catcher may be present due to voice recognition software. Attending Provider Attestation/Addendum I attest that I was physically present for the evaluation, physical examination, lab and imaging review of the patient with the residents. I discussed the case with the residents and agree with the findings and plans of care as documented above. At bedside today, patient states she is having abdominal discomfort after the colonoscopy. She also had blood in her stool in the morning and yesterday after the procedure. Vitals are stable. Lab results show a stable hemoglobin. Patient has been on n.p.o., started on gentle IV hydration. Patient is planned for another colonoscopy tonight with GI. Shawn Gaffney MD
[2024-06-30] MEDS: HYOSCYAMINE SULF 0.125 MG TAB.SUBL 0.25 MG PO ×2 (10:13→20:53)
[2024-06-30] MEDS: SODIUM CHLORIDE 0.9% 1000 ML 1,000 ML 80 ML IV (10:13)
[2024-06-30] MEDS: ACETAMINOPHEN 325 MG TABLET 650 MG PO (11:17)
[2024-06-30 11:48] VITALS: BP 125/69; PULSE 72; RESP 18; TEMP 36.3; O2SAT 95
--- NOTE | 2024-06-30 13:42 | ESPR_ITS ---
Documentation for date of: 06/30/24 Subjective Subjective Interval history: Hemoglobin hematocrit stable at 13.3 and 38.4 Flexible sigmoidoscopy canceled as patient was already banded Exam Vital Signs Temp Pulse Resp BP Pulse Ox O2 Del Method O2 Flow Rate 97.4 F 72 18 125/69 95 Room Air 3 06/30/24 11:48 06/30/24 11:48 06/30/24 11:48 06/30/24 11:48 06/30/24 11:48 06/30/24 11:48 06/29/24 11:50 Objective Labs 06/30/24 05:25 06/30/24 05:25 Labs: Laboratory Results - last 24 hr 06/30/24 05:25 WBC 4.7 RBC 4.40 Hgb 13.3 Hct 38.4 MCV 87 MCH 30.2 MCHC 34.6 RDW Std Deviation 40.8 Plt Count 153 Neut % (Auto) 43 Lymph % (Auto) 45 [place] % (Auto) 9 Eos % (Auto) 3 Baso % (Auto) 0 Neut # (Auto) 2.0 Lymph # (Auto) 2.1 [place] # (Auto) 0.4 Eos # (Auto) 0.1 Baso # (Auto) 0.0 Immature Gran # (Auto) 0.01 H Absolute Nucleated RBC 0.00 Immature Gran % 0 Nucleated RBC % 0 Sodium 141 Potassium 3.9 Chloride 110 H Carbon Dioxide 26.1 Anion Gap 5 L BUN 9 Creatinine 0.8 Estim Creat Clear Calc 76.0 eGFR > 60 BUN/Creatinine Ratio 11 L Glucose 118 H Calculated Osmolality 280 Calcium 8.6 Impressions Impression: Internal hemorrhoid bleed hemoglobin hematocrit stable Advance diet From a GI viewpoint patient can be discharged to be followed by PCP No GI follow-up necessary Assessment & Plan A&P Narrative Bloody mucousy diarrhea with abdominal pain and abnormal CT scan of the abdomen pelvis showing thickening and hyperemia of the colon Differential diagnosis include Infectious enterocolitis versus inflammatory bowel disease Plan Complete stool panel with Gram stain culture and sensitivity C. difficile Giardia antigen fecal calprotectin ANCA antibody Broad-spectrum coverage with IV ciprofloxacin and Flagyl discussed that with the ER physician and started in the ER after panculture If the culture and sensitivity and the C. difficile is negative Will consider fiberoptic colonoscopy prior to discharge with biopsies for further diagnosis and therapeutic intervention Other medical problems include Essential hypertension Hyperlipidemia Diabetes mellitus type 2 Thank you once again for the opportunity to participate in the care of this patient Time Spent With Patient Time: Total time spent is greater than 50% in coordination of care (as documented) at patient's floor/unit and/or counseling patient:
[2024-06-30 16:00] VITALS: BP 129/70; PULSE 73; RESP 18; TEMP 36.1; O2SAT 96
[2024-06-30 20:00] VITALS: BP 146/72; PULSE 102; RESP 18; TEMP 36.1; O2SAT 99
[2024-07-01] VITALS: BP 135/68; PULSE 69; RESP 18; TEMP 36.2; O2SAT 100
[2024-07-01 04:00] VITALS: BP 131/71; PULSE 93; RESP 18; TEMP 36.3; O2SAT 95
[2024-07-01 06:11] LABS: Basophils % (Auto) 1 % (0-2.5); Eosinophils # (Auto) 0.1 Thou/mm3 (0.0-0.5); Eosinophils % (Auto) 2 % (0-10); Hematocrit 35.6 % (36.0-46.0); Hemoglobin 12.9 g/dL (12.0-16.0); Immature Granulocytes % (Auto) 0 % (0-0); Immature Granulocytes Auto 0.01 Thou/mm3 (0.00-0.00); Lymphocytes # (Auto) 2.2 Thou/mm3 (1.0-4.8); Lymphocytes % (Auto) 35 % (10-50); Mean Corpuscular HGB Conc 36.2 g/dl (31.0-37.0); Mean Corpuscular Hemoglobin 30.5 pg (25.0-35.0); Mean Corpuscular Volume 84 fL (80-100); Monocytes # (Auto) 0.5 Thou/mm3 (0.0-0.8); Monocytes % (Auto) 8 % (0-12); Neutrophils # (Auto) 3.4 Thou/mm3 (1.8-7.7); Neutrophils % (Auto) 54 % (37-80); Nucleated Red Blood Cell % 0 /100 WBC (0); Platelet Count 143 Thou/mm3 (140-440); RDW Standard Deviation 39.6 fL (36.4-46.3); Red Blood Count 4.23 Miln/mm3 (4.00-5.20); White Blood Count 6.3 Thou/mm3 (3.6-11.0)
[2024-07-01 06:25] LABS: Anion Gap 12 (7-16); BUN/Creatinine Ratio 10 Ratio (12-20); Blood Urea Nitrogen 7 mg/dL (9-23); Calcium 8.4 mg/dL (8.3-10.6); Carbon Dioxide 23.8 mMol/L (20.0-31.0); Chloride 108 mMol/L (98-107); Creatinine (Component) 0.7 mg/dL (0.6-1.3); Estimated Creatinine Clearance 86.8 mL/min (>60); Glucose 106 mg/dL (74-106); Osmolality,Calculated 284 (275-295); Potassium 3.7 mMol/L (3.4-5.1); Sodium 144 mMol/L (136-145); eGFR > 60 See Note
[2024-07-01] MEDS: HYOSCYAMINE SULF 0.125 MG TAB.SUBL 0.25 MG PO (06:34)
[2024-07-01 08:00] VITALS: BP 127/63; PULSE 77; RESP 18; TEMP 36.3; O2SAT 98
[2024-07-01] MEDS: CIPROFLOXACIN HCL 250 MG TABLET 500 MG PO (08:22)
[2024-07-01] MEDS: PANTOPRAZOLE 40 MG TABLET PO (08:22)
[2024-07-01] MEDS: DULoxetine HCL 20 MG CAPSULE PO (08:22)
--- NOTE | 2024-07-01 10:21 | ESDS_ITS ---
Planned Discharge Date 07/01/24 DS: Providers Provider Date of admission: 06/30/24 07:55 Primary care physician: Physician No Primary/Family Admitting Provider: Gaudencio Wood MD Attending Provider on Admission: Shawn Gaffney MD Consults: 06/26/24 10:27 Consult to Gastroenterology Routine Comment: ND bleed. Hx Diverticular bleed. Colitis on CT Consulting Provider: Sushila Johnson 06/26/24 13:53 Health Equity Referral - Nutrition Routine Comment: Positive screening for nutrition needs. Health Equity Referral - Utilities Routine Comment: Positive screening for utility assistance needs. Attending Provider on DC: Leighton Briones MD Discharging Provider: Devon Benítez MD DS: Diagnosis Problem List Completed Was Problem List Reviewed/Reconciled?: Yes Hospital Course Hospital Course Hospital course: Fransisca Stroud is 59 yr F with PMH of type 2 diabetes, hypertension, sleeve gastrectomy presenting to the ED due to abdominal pain and multiple episodes of melena. Patient will be admitted for IV antibiotics in setting of colitis. For her colitis patient was treated with 6 days of metronidazole 500 Mg IV 3 times daily ciprofloxacin 400 Mg IV twice daily from 06/25 - 07/01 after which her abdominal pain and diarrhea improved. Stool culture was negative, C. difficile was negative and calprotectin pending. CT abdomen pelvis showed colitis pattern. With regards to her ND bleed, patient underwent colonoscopy with therapeutic banding of internal hemorrhoids. After this her ND bleed also improved. Colonoscopy completed on 06/29/2024 findings include: Grade 4 internal hemorrhoids. Therapeutic banding performed. All patient's labs are now returning to her baseline. Patient is now clinically stable and fit for discharge to home. Discharge diagnoses: 1. Colitis?resolving 2. ND bleed?resolving 3. Internal hemorrhoids s/p band ligation 06/29 4. History of sleeve gastrectomy 5. [id number] diabetes mellitus type 2 6. Primary hypertension 7. Hyperlipidemia Discharge plan: - You have been started on Preparation H ointment for your hemorrhoids. You can use up to twice a day as necessary. ? You have been started on medication hyoscyamine for abdominal cramping. You can take 1 tablet up to 4 times a day as necessary ? We have put a hold on your dicyclomine and magnesium until you see your primary doctor. - Follow-up with your primary care doctor for the results of biopsies from your colonoscopy. - Follow up with GI Dr. Johnson within 2-4 weeks. - Recommend you continue diet eith 50% green leafy vegetables and increase your water intake to reduce constipation and improve bowel movements - Follow up with your primary care physician within 1 week of discharge. If you do not have a primary care physician, please follow up with the [facility] Residents clinic ([phone]) ? If you experience any new, worsening or persistent symptoms either call your primary doctor, or dial 911 or present to the emergency department. We are grateful to be able to participate in Mrs. Stroud' care. We wish her the best. Plan of care discussed with Attending Dr. Anselmo Benítez MD PGY 1 Disclaimer: This note was dictated by speech recognition. Minor errors in author's agent may be present due to voice recognition software.. Time Spent with Patient Time attestation: Total time spent providing and/or coordinating discharge services: Time spent: Greater than 30 minutes (48) Exam Vital Signs Temp Pulse Resp BP Pulse Ox O2 Del Method O2 Flow Rate 97.4 F 77 18 127/63 98 Room Air 3 07/01/24 08:00 07/01/24 08:00 07/01/24 08:00 07/01/24 08:00 07/01/24 08:00 07/01/24 08:00 06/29/24 11:50 Narrative Exam Constitutional Alert, oriented x 3 and comfortable. Elderly female HEENT Vision grossly intact. Patent nares. Trachea midline Respiratory Chest normal on inspection and clear auscultation bilaterally Cardiovascular S1 and S2 audible, RRR. No murmurs carotid bruit. No gross JVD. Abdominal Soft and tender to palpation in lower quadrant. BS + Genitourinary No bladder tenderness, no flank pain. Normal to palpation Musculoskeletal Extremities tone within normal limits. No LE edema. Neurological CN II - XII grossly intact. Extremity motor and sensation grossly intact. Skin Warm, dry and intact. No apparent lesions. Psychiatric Patient has good affect, is cooperative Discharge Plan Plan Patient Disposition: HOME (Self Care) Care Plan Goals: - You have been started on Preparation H ointment for your hemorrhoids. You can use up to twice a day as necessary. ? You have been started on medication hyoscyamine for abdominal cramping. You can take 1 tablet up to 4 times a day as necessary ? We have put a hold on your dicyclomine and magnesium until you see your primary doctor. - Follow-up with your primary care doctor for the results of biopsies from your colonoscopy. - Follow up with GI Dr. Johnson within 2-4 weeks. - Recommend you continue diet eith 50% green leafy vegetables and increase your water intake to reduce constipation and improve bowel movements - Follow up with your primary care physician within 1 week of discharge. If you do not have a primary care physician, please follow up with the [facility] Residents clinic ([phone]) ? If you experience any new, worsening or persistent symptoms either call your primary doctor, or dial 911 or present to the emergency department. Prescriptions/Referrals Prescriptions/Med Rec: New hyoscyamine sulfate 0.125 mg tablet 0.125 mg PO QID PRN (Reason: Abdominal cramping) 7 Days Qty: 28 0RF Continued pantoprazole [Protonix] 40 mg Tablet,Delayed Release (Dr/Ec) 40 mg PO QDAY Jardiance 25 mg tablet 25 mg PO QDAY varenicline tartrate 1 mg tablet 1 mg PO BID Patient Comments: TAKE 1 TABLET BY MOUTH TWICE A DAY FOR 90 DAYS tizanidine 2 mg tablet 2 mg PO Q12H PRN (Reason: muscle spasm) Patient Comments: TAKE 1 TABLET BY MOUTH TWICE A DAY NEEDED FOR MUSCLE SPASMS multivitamin [Daily Multi-Vitamin] Tablet 1 tab PO QDAY docusate sodium 100 mg capsule 100 mg PO QDAY atorvastatin 20 mg tablet 20 mg PO QDAY duloxetine 20 mg capsule,delayed release(DR/EC) 20 mg PO QDAY acetaminophen 500 mg Powder In Packet 500 mg PO Q6H PRN (Reason: Pain (Scale Score 4-6)) Held magnesium 250 mg tablet 250 mg PO QDAY Hold Instructions: Until you see your PCP dicyclomine 20 mg tablet 20 mg PO QID PRN (Reason: Abdominal Pain) Hold Instructions: Hold until you see PCP Referrals: Sushila Johnson MD [Physician] - No Primary/Family,Physician [Primary Care Provider] - Patient/Caregiver Discharge Instructions Discharge Activity: activity as tolerated Education Materials: Understanding Hemorrhoids Print Language: Polish Stand Alone Forms: Radha Award Info., Patient Portal Info Letter Discharge Order Discharge Orders: Discharge (Routine); Ordered 07/01/24 Ordered By: Devon Benítez Quality Discharge Quality Measures VTE prophylaxis Attestestation MD Attestation I have examined the patient, reviewed labs and imaging findings, discussed the case with the resident(s), and reviewed entered orders. I agree with the plan of care as outlined in this note. Time Spent: [address] Anselmo MD
[2024-07-01 11:44] VITALS: BP 120/66; PULSE 74; RESP 18; TEMP 36.4; O2SAT 97
--- NOTE | 2024-07-01 12:18 | PC.NURSE ---
pt signed discharge papers at 1200
--- NOTE | 2024-07-01 22:11 | PD.IMPROG ---
Documentation for date of: 07/01/24 Subjective Subjective Interval history: Late entry for the note Case discussed with internal medicine team Okay to discharge patient home No further GI workup necessary Exam Vital Signs Temp Pulse Resp BP Pulse Ox O2 Del Method O2 Flow Rate 97.5 F 74 18 120/66 97 Room Air 3 07/01/24 11:44 07/01/24 11:44 07/01/24 11:44 07/01/24 11:44 07/01/24 11:44 07/01/24 11:44 06/29/24 11:50 Objective Labs 07/01/24 04:40 07/01/24 04:40 Labs: Laboratory Results - last 24 hr 07/01/24 04:40 WBC 6.3 RBC 4.23 Hgb 12.9 Hct 35.6 L MCV 84 MCH 30.5 MCHC 36.2 RDW Std Deviation 39.6 Plt Count 143 Neut % (Auto) 54 Lymph % (Auto) 35 [place] % (Auto) 8 Eos % (Auto) 2 Baso % (Auto) 1 Neut # (Auto) 3.4 Lymph # (Auto) 2.2 [place] # (Auto) 0.5 Eos # (Auto) 0.1 Baso # (Auto) 0.0 Immature Gran # (Auto) 0.01 H Absolute Nucleated RBC 0.00 Immature Gran % 0 Nucleated RBC % 0 Sodium 144 Potassium 3.7 Chloride 108 H Carbon Dioxide 23.8 Anion Gap 12 BUN 7 L Creatinine 0.7 Estim Creat Clear Calc 86.8 eGFR > 60 BUN/Creatinine Ratio 10 L Glucose 106 Calculated Osmolality 284 Calcium 8.4 Impressions Impression: Hematochezia secondary to internal hemorrhoidal bleed requiring band ligation doing well Okay to discharge patient home to be followed by the PCP Assessment & Plan A&P Narrative Bloody mucousy diarrhea with abdominal pain and abnormal CT scan of the abdomen pelvis showing thickening and hyperemia of the colon Differential diagnosis include Infectious enterocolitis versus inflammatory bowel disease Plan Complete stool panel with Gram stain culture and sensitivity C. difficile Giardia antigen fecal calprotectin ANCA antibody Broad-spectrum coverage with IV ciprofloxacin and Flagyl discussed that with the ER physician and started in the ER after panculture If the culture and sensitivity and the C. difficile is negative Will consider fiberoptic colonoscopy prior to discharge with biopsies for further diagnosis and therapeutic intervention Other medical problems include Essential hypertension Hyperlipidemia Diabetes mellitus type 2 Thank you once again for the opportunity to participate in the care of this patient Time Spent With Patient Time: Total time spent is greater than 50% in coordination of care (as documented) at patient's floor/unit and/or counseling patient:
[2024-07-02 06:32] LABS: Giardia Result NOT DETECTED
[2024-07-02 06:33] LABS: Calprotectin, Stool* 215 mcg/g; Helicobacter pylori Ag, Stool* NOT DETECTED (NOT DETECTED)
[2024-07-04 04:31] LABS: ANCA Screen NEGATIVE (NEGATIVE); Myeloperoxidase Ab <1.0 AI (<1.0); Proteinase-3 Ab <1.0 AI (<1.0)
== END 2024-07-01 12:35 | disposition home or self-care (01) | DRG 349 ==
LOC: SERX 15:01 → SERHOLD 23:57 → S3NX 06-27 10:08 → SERHOLD 06-30 07:58
PROVIDERS: Nurse Practitioner Primary Care; Specialist; Admitting Provider Internal Medicine; Emergency Provider Emergency Medicine; Visit Provider Student in an Organized Health Care Education/Training Program
PROC: 0DJD8ZZ Inspection of Lower Intestinal Tract, Via Natural or Artificial Opening Endoscopic (ICD-10-PCS; CPT 45378; principal; 2024-06-29 10:45)
DX: K52.9 Noninfective gastroenteritis and colitis, unspecified (principal); E11.9 Type 2 diabetes mellitus without complications; I10 Essential (primary) hypertension; E78.5 Hyperlipidemia, unspecified; K63.89 Other specified diseases of intestine; Z98.84 Bariatric surgery status; K64.3 Fourth degree hemorrhoids
CPT/HCPCS: 36415; 71046; 74177; 80048; 80053; 80307; 81001; 83036; 83690; 83735; 83880; 83993; 84100; 84443; 84484; 85014; 85018; 85025; 85610; 85652; 85730; 86021; 86036; 86140; 87015; 87045; 87046; 87205; 87329; 87338; 87449; 87493; 87899; 93005; 96365; 96367; 96372; 96375; 99285; A4649; G0378; J0744; J1200; J1815; J1885; J2250; J2270; J2405; J2470; J3010; J3490; J7030; Q9967; A9270; J1836

== ENCOUNTER → 2024-07-04 | Outpatient (CLI) | payer MEDICARE, SELFPAY ==
[2024-06-26 12:43] VITALS: BMI 29.7
[2024-06-26 13:30] VITALS: BP 153/90; PULSE 72; RESP 18; TEMP 36.2; O2SAT 98
--- NOTE | 2024-07-04 10:30 | XR_ITS ---
Examination: Screening digital mammography, bilateral Computer aided detection 3-D breast Tomosynthesis, bilateral Date and time of exam: July 04, 2024 1002 hours Compared to mammograms dating to January 21, 2018 Indication: Screening Technique: Nonmagnified MLO, CC views of the breasts to been obtained, reconstructed from 3-D Tomosynthesis images. R2 computer aided detection program utilized for evaluation of suspicious masses and/or abnormal calcifications. 3-D Tomosynthesis images obtained. Findings: Scattered areas of fibroglandular density. Benign calcifications. No interval suspicious masses Impression: BI-RADS category II: Benign Findings. Recommend 1 year follow-up mammogram.
== END | disposition home or self-care (01) ==
PROVIDERS: Referring Provider Nurse Practitioner Family; Visit Provider Nurse Practitioner Family
DX: Z12.31 Encounter for screening mammogram for malignant neoplasm of breast (principal); R92.323 Mammographic fibroglandular density, bilateral breasts; R92.1 Mammographic calcification found on diagnostic imaging of breast
CPT/HCPCS: 77063; 77067

== ENCOUNTER 2024-10-25 07:28 | Emergency (ER) | payer MEDICARE, MEDICAID, SELFPAY ==
[2024-10-25 07:29] VITALS: BMI 29.1
[2024-10-25 08:03] VITALS: BP 119/73; PULSE 82; RESP 19; TEMP 36.5; O2SAT 99
--- NOTE | 2024-10-25 08:15 | XR_ITS ---
Examination: Foot, left 3 views Technique: AP, oblique, lateral views foot, 3 views Date and time of exam: 10/25/2024 0832 hrs Indications: Injury to foot today, pain Findings: Extensive post surgical change Old appearing fracture 5th metatarsal No new fractures. Impression: Old appearing fracture fifth metatarsal, but clinical correlation advised
--- NOTE | 2024-10-25 08:47 | PD.EDANKLE ---
Lower Extremity Injury RME/HPI General Chief Complaint: Ankle/Foot Injury Stated Complaint: LEFT FOOT INJURY S/P FALL TODAY Time Seen by Provider: 10/25/24 07:44 Arrival date/time: 10/25/24 07:28 Mode of arrival: wheelchair RME / HPI RME / HPI Narrative: 59-year-old female with past medical history of type 2 diabetes mellitus, hypertension, sleeve gastrectomy presented to [facility] ED on 10/25/2024 with a chief complaint of ground-level mechanical fall. Patient reported tripping on left foot with twisting of her ankle. Denies pain in her arms or anywhere else in body. No hip or back pain. No neck pain. Denies hitting head, patient not on any blood thinners. Patient denies any presyncope/syncopal symptoms MD complaint: foot injury Onset (ago): hour(s) Injury: Left: foot Type of Injury: inversion Severity scale (1-10): 6 Related Data Home Medications ?Medication ?Instructions ?Recorded ?Confirmed pantoprazole 40 mg tablet,delayed 40 mg PO QDAY 11/24/17 06/26/24 release (Protonix) acetaminophen 500 mg oral powder 500 mg PO Q6H PRN Pain (Scale 04/27/23 06/26/24 packet Score 4-6) atorvastatin 20 mg tablet 20 mg PO QDAY 04/27/23 06/26/24 dicyclomine 20 mg tablet 20 mg PO QID PRN Abdominal Pain 04/27/23 06/26/24 Held on 07/01/24. Instructions: Hold until you see PCP duloxetine 20 mg capsule,delayed 20 mg PO QDAY 04/27/23 06/26/24 release docusate sodium 100 mg capsule 100 mg PO QDAY 06/26/24 06/26/24 empagliflozin 25 mg tablet 25 mg PO QDAY 06/26/24 06/26/24 (Jardiance) magnesium 250 mg tablet 250 mg PO QDAY 06/26/24 06/26/24 Held on 07/01/24. Instructions: Until you see your PCP multivitamin (Daily Multi-Vitamin 1 tab PO QDAY 06/26/24 06/26/24 tablet) tizanidine 2 mg tablet 2 mg PO Q12H PRN muscle spasm 06/26/24 06/26/24 varenicline tartrate 1 mg tablet 1 mg PO BID 06/26/24 06/26/24 Allergies Allergy/AdvReac Type Severity Reaction Status Date / Time morphine Allergy Severe Hives Verified 10/25/24 07:31 Sulfa (Sulfonamide Allergy Severe Swelling Verified 10/25/24 07:31 Antibiotics) of Lip/Tongue/Throat codeine AdvReac Severe SICK TO Verified 10/25/24 07:31 STOMACH Review of Systems Review of Systems Systems Reviewed: All systems reviewed, normal except as documented Past Medical History Past Medical History Comments PMH COMMENT: PSH: Sleeve gastrectomy 2022, cholecystectomy, appendectomy, hysterectomy FamHx: Father from thyroid cancer, mother from liver cancer Social: Lives in [place] with , not employed, denies smoking, no drinking, no drug use. Meds: Atorvastatin 20 mg, cyclobenzaprine 5 mg 3 times daily, duloxetine 20 mg Allergies: Codeine and sulfa ED Exam Narrative Physical exam: Physical Exam General: Awake and in no acute distress, sitting comfortably in wheelchair. Conversational and non-toxic appearing. HEENT: Normocephalic, atraumatic, mucous membranes moist. no ttp along cervical spine Heart: Regular rate and rhythm, no murmurs. Lungs: Clear to auscultation with no wheezing or crackles. Abdomen: Soft, nondistended, nontender, positive bowel sounds. ?No guarding or rebound tenderness. Neurologic: Alert and oriented x3, no gross neurological deficit, and patient able to move all 4 extremities. Extremities: Swelling noted in left foot around fifth toe, small skin abrasion noted left foot. Scar noted on left knee. No swelling left hand and left knee. 2+ DP pulses, no LE edema beyond foot. No pain at hips or UE's. Course Course Course Narrative: Patient seen and evaluated in [facility]. Ordered foot x-ray left 3 view. Quality Measures none Orders Category Date Time Status Splint / Immobilizer STAT Care 10/25/24 10:26 Completed XR foot comp LT min 3V Stat Exams 10/25/24 08:15 Completed Vital Signs Vital signs: Vital Signs Temperature 97.7 F 10/25/24 08:03 Pulse Rate 82 10/25/24 08:03 Respiratory Rate 19 10/25/24 08:03 Blood Pressure 119/73 10/25/24 08:03 Pulse Oximetry (%) 99 10/25/24 08:03 Oxygen Delivery Method Room Air 10/25/24 08:03 Extremity Injury, Lower MDM Narrative MDM Narrative:: #Left ankle pain, sprain #Status post ground-level mechanical fall, no prodromal symptoms Patient had twisting of ankle due to uneven ground fell on her left side. Denies hitting head, not on any blood thinners Patient denies any other problems, ROS negative Left foot x-ray 3 view negative for acute fracture. Patient to be discharged to follow outpatient with podiatry in 1 to 2 weeks, will be provided with left walking boot, Amador wrap. Use [id number] medication for pain relief preferably Tylenol Patient already established with home health, has walker at home Stable for discharge. Case discussed with Attending Physician Dr. Aria Bo MD Internal Medicine PGY-2 Disclaimer: This note was dictated by speech recognition. Minor errors in client solutions specialist may be present due to voice recognition software. Patient data External records reviewed:: [facility] previous records Clinical information provided by:: patient Social determinants that could affect healthcare access:: none Patient has the following chronic illnesses:: type 2 diabetes mellitus, hypertension, sleeve gastrectomy How is presenting disease/condition affected by chronic disease/condition?: uneffected by Evaluation data The following diagnostics were reviewed and interpreted by me:: radiology exam(s) Lab and/or radiology exams considered but not ordered:: Left foot 3 view x-ray?old appearing fifth metatarsal fracture, no acute fractures Interpretation Summary: No acute fracture Medications / Prescriptions Medications or Prescriptions considered but not ordered:: [id number] Tylenol Ordered Amador wrap and left cast shoe Medication administrations:: None Consultations Consultation(s) initiated? (list below): No Diagnosis Most likely diagnosis given after review of the tests above:: Ankle sprain Admission Indicated Admission indicated?: not indicated Admission Request Was there a request for admission?: No Disposition Plan Disposition Plan: Discharge Discharge Attestation Discharge Attestation: The patient and all family members were given an opportunity to ask questions and understood the discharge instructions. Discharge instructions specifically effects, indications for sooner follow up or return to the emergency department, and the expected course of current diagnosis. Patient condition: Stable Discharge Plan Plan Patient Disposition: Home w/HOME HEALTH Patient condition on transfer: Stable Prescriptions/Referrals Prescriptions/Med Rec: No Action pantoprazole [Protonix] 40 mg Tablet,Delayed Release (Dr/Ec) 40 mg PO QDAY Jardiance 25 mg tablet 25 mg PO QDAY varenicline tartrate 1 mg tablet 1 mg PO BID Patient Comments: TAKE 1 TABLET BY MOUTH TWICE A DAY FOR 90 DAYS tizanidine 2 mg tablet 2 mg PO Q12H PRN (Reason: muscle spasm) Patient Comments: TAKE 1 TABLET BY MOUTH TWICE A DAY NEEDED FOR MUSCLE SPASMS magnesium 250 mg tablet 250 mg PO QDAY multivitamin [Daily Multi-Vitamin] Tablet 1 tab PO QDAY docusate sodium 100 mg capsule 100 mg PO QDAY atorvastatin 20 mg tablet 20 mg PO QDAY dicyclomine 20 mg tablet 20 mg PO QID PRN (Reason: Abdominal Pain) duloxetine 20 mg capsule,delayed release(DR/EC) 20 mg PO QDAY acetaminophen 500 mg Powder In Packet 500 mg PO Q6H PRN (Reason: Pain (Scale Score 4-6)) Referrals: Jason Garcia MD [Primary Care Provider, Family Practice] - In 1 week Problem List Clinical Impression: Sprain and strain of ankle Patient/Caregiver Discharge Instructions Discharge Activity: walk with walker only Education Materials: ED AMADOR Wrap, ED Ankle Sprain (Adult) Additional Instructions: - Activity as tolerated, avoid full weightbearing left foot - Follow up with coremaking machine operator in 1-2 weeks - Use OTC Tylenol ES as needed for pain - Use walker for mobilization, fall precautions - Return to ED if symptoms worsen Print Language: Nepali Stand Alone Forms: [employer]ha Award Info., Patient Portal Info Letter
--- NOTE | 2024-10-25 10:45 | PC.NURSE ---
CLARIFIED ORDER AND INFORMED MD THE E.D. DOES NOT HAVE CAST BOOT BUT A CAST SHOE. MEDIUM CAST SHOE PUT ON LEFT FOOT
== END 2024-10-25 10:45 | disposition home health service (06) ==
PROVIDERS: Emergency Provider Emergency Medicine; PCP Family Medicine
DX: S93.402A Sprain of unspecified ligament of left ankle, initial encounter (principal); S96.912A Strain of unspecified muscle and tendon at ankle and foot level, left foot, initial encounter; W18.30XA Fall on same level, unspecified, initial encounter; E11.9 Type 2 diabetes mellitus without complications; I10 Essential (primary) hypertension
CPT/HCPCS: 73630; 99284

== ENCOUNTER → 2025-01-23 | Outpatient (CLI) | payer MEDICARE, MEDICAID, SELFPAY ==
[2025-01-23 09:44] LABS: Basophils # (Auto) 0.0 Thou/mm3 (0.0-0.2); Basophils % (Auto) 0 % (0-2.5); Eosinophils # (Auto) 0.1 Thou/mm3 (0.0-0.5); Eosinophils % (Auto) 1 % (0-10); Hematocrit 40.6 % (36.0-46.0); Hemoglobin 14.0 g/dL (12.0-16.0); Immature Granulocytes Auto 0.01 Thou/mm3 (0.00-0.00); Lymphocytes # (Auto) 2.0 Thou/mm3 (1.0-4.8); Lymphocytes % (Auto) 40 % (10-50); Mean Corpuscular HGB Conc 34.5 g/dl (31.0-37.0); Mean Corpuscular Hemoglobin 30.0 pg (25.0-35.0); Mean Corpuscular Volume 87 fL (80-100); Monocytes # (Auto) 0.4 Thou/mm3 (0.0-0.8); Monocytes % (Auto) 8 % (0-12); Neutrophils # (Auto) 2.4 Thou/mm3 (1.8-7.7); Neutrophils % (Auto) 50 % (37-80); Nucleated Red Blood Cell # 0.00 Thou/mm3 (0.00-0.00); Nucleated Red Blood Cell % 0 /100 WBC (0); Platelet Count 172 Thou/mm3 (140-440); RDW Standard Deviation 40.6 fL (36.4-46.3); Red Blood Count 4.67 Miln/mm3 (4.00-5.20); White Blood Count 4.9 Thou/mm3 (3.6-11.0)
[2025-01-23 09:53] LABS: Glucose Estimated Average 146 mg/dL (80-131); Hemoglobin A1C 6.7 % Hgb (4.8-6.0)
[2025-01-23 10:01] LABS: Alanine Aminotransferase 29 U/L (10-49); Albumin, Serum 5.0 gm/dL (3.4-4.8); Albumin/Globulin Ratio 1.9 (1.2-2.2); Alkaline Phosphatase 87 U/L (46-116); Anion Gap 11 (7-16); Aspartate Amino Transferase 29 U/L (0-34); BUN/Creatinine Ratio 23 Ratio (12-20); Bilirubin,Total 0.7 mg/dL (0.3-1.2); Blood Urea Nitrogen 18 mg/dL (9-23); Calcium 9.7 mg/dL (8.3-10.6); Calcium (Corrected) 9.7 mg/dL (8.5-10.1); Carbon Dioxide 27.0 mMol/L (20.0-31.0); Cardiac Risk Estimate 2.4 RATIO (3.7-5.6); Chloride 103 mMol/L (98-107); Cholesterol 139 mg/dL (132-200); Creatinine (Component) 0.8 mg/dL (0.6-1.3); Free T4 (Free Thyroxine) 1.14 ng/dL (0.89-1.76); Globulin 2.7 gm/dL (2.3-3.5); Glucose 132 mg/dL (74-106); HDL Cholesterol 57 mg/dL (40-60); LDL Cholesterol,Calculated 60 mg/dL (0-130); Osmolality,Calculated 285 (275-295); Potassium 4.6 mMol/L (3.4-5.1); Sodium 141 mMol/L (136-145); Thyroid Stimulating Hormone 0.36 uIU/mL (0.55-4.78); Total Protein 7.7 gm/dL (5.7-8.2); Triglycerides 110 mg/dL (30-150); eGFR > 60 See Note
== END | disposition home or self-care (01) ==
LOC: COPL 08:45
PROVIDERS: PCP Physician Assistant; Referring Provider Physician Assistant; Visit Provider Physician Assistant
DX: E78.5 Hyperlipidemia, unspecified (principal)
CPT/HCPCS: 36415; 80053; 80061; 83036; 84439; 84443; 85025